=== PATIENT | female | born 1970 | race Two or more races ===

== ENCOUNTER 2020-08-22 07:22 | Outpatient (REF) | payer OTHER, SELFPAY ==
[2020-08-22 08:05] LABS: Hematocrit 45.1 % (37-47); Hemoglobin 14.4 g/dl (12.0-16.0); Mean Corpuscular HGB Conc 31.9 g/dl (31.0-35.0); Mean Corpuscular Hemoglobin 26.6 pg (27.0-33.0); Mean Corpuscular Volume 83.2 fL (80-98); Mean Platelet Volume 13.4 fL (9.4-12.3); Platelet Count 168 X10*3/uL (160-400); Red Blood Count 5.42 X10*6/uL (4.20-5.50); Red Cell Distribution Width 14.5 % (11.0-16.0); White Blood Count 9.1 X10*3/uL (4.8-10.8)
[2020-08-22 08:33] LABS: Alanine Aminotransferase 29 U/L (0-31); Albumin Level 4.8 g/dL (3.5-5.0); Alkaline Phosphatase 91 U/L (39-117); Anion Gap 15 (12-20); Aspartate Amino Transferase 20 U/L (5-31); Bilirubin Total 0.5 mg/dL (0.0-1.0); Blood Urea Nitrogen 13 mg/dL (9-16); Calcium 9.8 mg/dL (8.4-10.2); Carbon Dioxide 27 mmol/L (22-29); Chloride 103 mmol/L (96-108); Cholesterol 226 mg/dL; Estimated Glomerular Filt Rate > 60; Glucose Fasting 200 mg/dL (60-99); HDL Cholesterol 37 mg/dL; LDL Cholesterol Calculated 123 mg/dl; Potassium 4.5 mmol/L (3.3-5.1); Sodium 140 mmol/L (135-145); Total Protein 7.8 g/dL (6.5-8.0); Triglycerides 332 mg/dL
[2020-08-22 08:56] LABS: TSH reflex Free T4 3.07 uIU/mL (0.32-4.0)
[2020-08-22 09:22] LABS: Creatinine Urine 261.55 mg/dL; Microalbum/Creatinine Ratio Ur 56.2 ug/mg cr
== END 2020-08-22 07:23 | disposition home or self-care (01) ==
LOC: HO.LAB 07:22
PROVIDERS: PCP Physician Assistant; Visit Provider Physician Assistant
DX: E11.65 Type 2 diabetes mellitus with hyperglycemia (principal); I10 Essential (primary) hypertension
CPT/HCPCS: 36415; 80053; 80061; 82043; 84443; 85027

== ENCOUNTER → 2020-10-12 12:24 | Outpatient (BNVA) | payer OTHER, SELFPAY | PROVIDERS: PCP Physician Assistant; Visit Provider Physician Assistant | DX: Z12.11 Encounter for screening for malignant neoplasm of colon (principal); K21.9 Gastro-esophageal reflux disease without esophagitis | CPT/HCPCS: 99212 ==

== ENCOUNTER 2020-11-14 10:58 | Day surgery (SDC) | payer OTHER, SELFPAY ==
[2020-11-09 09:02] VITALS: BMI 41.5
--- NOTE | 2020-11-09 10:57 | P.CONAN_ITS ---
Documented by User: Lenore Gamboa 11/09/20 10:58 HPI - Anesthesia Eval Consult details Narrative: 50yo F for Upper Endoscopy and Colonoscopy [facility] Active Problems Active Problems: All Active Problems (Updated 11/09/20 @ 08:56 by Amanda Alexandra) HTN (hypertension) (Acute) DMII (diabetes mellitus, type 2) (Acute) Insomnia (Acute) Colon cancer screening (Acute) Acid reflux (Acute) Past Medical History Medical History Acid reflux DMII (diabetes mellitus, type 2) HTN (hypertension) Hyperlipidemia Iron deficiency anemia Family History Family History Brother Lymphoma Father Hypertension Diabetes Brother No problems noted. Surgical History Surgical History Hx of dilation and curettage Social History Social History Household Members: Spouse Alcohol intake: current Alcohol intake frequency: does not drink Smoking Status: Unknown if ever smoked Are you DNR?: No Advance Directives: No Advance Directives Information Provided: No Advance Directives on File: No Recently lost weight without trying: No Eating poorly because of decreased appetite: No Nutrition Risks: No Nutritional Risk Meds Allergies Allergy/AdvReac Type Severity Reaction Status Date / Time No Known Allergies Allergy Verified 11/09/20 08:56 Exam Exam Date and Time: November 09, 2020 1057 Height,Weight and Vital Signs: Height 5 ft 4 in Weight 109.769 kg Assessment and Plan Assessment Anesthesia Assessment: Chart Reviewed Documented by User: Brendan Donnelly 11/14/20 12:03 [facility] [place] Past Medical History Medical History Acid reflux DMII (diabetes mellitus, type 2) HTN (hypertension) Hyperlipidemia Iron deficiency anemia Family History Family History Brother Lymphoma Father Hypertension Diabetes Brother No problems noted. Surgical History Surgical History Hx of dilation and curettage Social History Social History Household Members: Spouse Alcohol intake: current Alcohol intake frequency: does not drink Smoking Status: Unknown if ever smoked Are you DNR?: No Advance Directives: No Advance Directives Information Provided: No Advance Directives on File: No Recently lost weight without trying: No Eating poorly because of decreased appetite: No Nutrition Risks: No Nutritional Risk Meds Allergies Allergy/AdvReac Type Severity Reaction Status Date / Time No Known Allergies Allergy Verified 11/09/20 08:56 Exam Airway Mallampati Class: III TM Dist: >3cm Neck ROM: Full Loose/Missing/Broken Teeth: No Heart: [id number] Lungs: cta b/l Assessment and Plan Assessment Anesthesia Assessment: Anesthesia Plan Discussed, PAT Visit and Chart Reviewed Final Anesthetic Review NPO: Yes ASA Class: III Final Preanesthetic Review: No Changes in Pt Med Stat, Meds/Allgs Chart Reviewed, Consent Obtained/Reviewed and Anes Risks/Benef Reviewed Patient Risk: Intermediate Procedure Risk: Low Assessment/Block/Sedation in SS: Assess/Block/Sedation-SS Anesthetic Plan Anesthetic Plan: MAC: and Agree w/ Assess. and Plan Disposition: Standard PACU
[2020-11-14 11:29] VITALS: BP 156/74; PULSE 90; RESP 18; TEMP 36.2; O2SAT 98; BMI 41.5
--- NOTE | 2020-11-14 11:47 | MHC.SHP ---
Pre-Procedural Eval Section B Chief Complaint: Screening, Acid Reflux Relevant Family History (Specify if Yes): No Relevant Social History: None Present Medications: see Short Stay Collaborative assessment Medical History: Significant History (Acid reflux DMII (diabetes mellitus, type 2) HTN (hypertension) Hyperlipidemia Iron deficiency anemia) History of Previous Operations: Relevant previous surgery/procedure and date(s) (D and C) Allergies: Allergies Allergy/AdvReac Type Severity Reaction Status Date / Time No Known Allergies Allergy Verified 11/09/20 08:56 Review of Systems Sugical H&P ROS: Negative: Constitution, Cardiovascular, Respiratory, Neurological, Psychiatric, Hem-Onc, Allergic/Immunologic, Gastrointestinal, Genitourinary, Musculoskeletal, Integumentary, Endocrine and Eyes/Ears/Nose/Throat Exam Surgical H&P Exam: Normal: HEENT, Normal: Heart, Normal: Lungs, Normal: Extremities, Normal: Abdomen, Normal: Skin and Normal: Neurological Plan Diagnosis/Plan: Unchanged I have reviewed the history and physical and performed a pertinent physical examination on my patient. No changes have occurred unless specified.
[2020-11-14] MEDS: Lactated Ringers 1,000 ML 100 ML IVCONT (11:57)
--- NOTE | 2020-11-14 12:25 | P.BOP_ITS ---
Brief Operative Note Date of Service: 11/14/20 Pre-op diagnosis: GERD, colon screen Post-op diagnosis: same Procedure: see op note Surgeon: Jose Elias Currie MD Anesthesia: MAC Was an Photographer Model used for this Procedure?: No Estimated blood loss (mL): 0 Condition: stable Disposition: PACU
[2020-11-14 12:32] LABS: Glucose, Whole Blood 140 mg/dL (60-115)
--- NOTE | 2020-11-14 12:35 | P.OP_ITS ---
Operative Note Operative Note Date of Service: 11/14/20 Narrative: Operative Information Procedure Description: EGD, Colonoscopy FLEXIBLE TRANSORAL UPPER GASTROINTESTINAL ENDOSCOPY AND COLONOSCOPY PROCEDURE NOTE UPPER ENDOSCOPY Consent: Indications for the procedure and potential complications of bleeding, perforation, reaction to medications and missed diagnosis were discussed with the patient and informed consent was obtained. Instrument: Olympus GIF H 190 J mid size upper endoscope Monitoring: Vital signs and clinical assessment, continuous EKG monitoring, Pulse oximetry, Carbon Dioxide monitoring and blood pressure monitoring were done throughout the procedure. Procedure: The patient was placed in the left lateral decubitis position and pre-procedure medications were administered and a bite block was placed. The endoscope was inserted into the mouth and advanced under direct vision to the third part of duodenum. A careful inspection was made as the upper endoscope was withdrawn including a retroflexed examination of the proximal stomach; Findings and interventions are described below. Findings: Larynx:normal Esophagus: GE junction at 37 cm, diaphragm hiatus at 37 cm, suspected short segment barretts, bx taken from GEj, and distal esophagus/proximal esophagus in separate jars Stomach: Patchy erythema. Biopsies were obtained. Grade 3 flap valve on retroflexed examination of the cardia. Duodenum: Normal bulb and descending duodenum, Intervention: Biopsies as noted above COLONOSCOPY Instrument: Olympus variable stiffness pediatric scope 190L Colonoscopy Monitoring: Vital signs and clinical assessment, continuous EKG monitoring, Pulse oximetry, Carbon Dioxide monitoring and blood pressure monitoring were done throughout the procedure. Colon withdrawal time was 11 minutes. Procedure: The patient was placed in the left lateral decubitis position and pre-procedure medications were administered. After a digital rectal examination of the ano-rectum, the video colonoscope was inserted into the rectum and advanced through the colon to the cecum/TI. The colonoscope was slowly withdrawn in a retrograde panoramic fashion and the colon mucosa was carefully examined including a retroflexed view of the rectum. Findings and interventions are described below. Procedure Difficulty:moderate, pressure applied to upper abdomen to intubate cecum Findings: Terminal Ileum-unable to intubate but ileocecal valve seen on retroflexion and was normal Cecum:normal Ascending Colon: normal Transverse Colon -normal Descending Colon:6-8 mm sessile polyp removed with forceps Sigmoid Colon: normal Rectum: Retroflexion with small internal hemorrhoids, grade I Anorectum - normal Colon preparation: De Leon Bowel Preparation Scale Right colon; 2 Transverse colon: 2 Left colon; 2 (0 = Unprepared colon segment with mucosa not seen due to solid stool that cannot be cleared. 1 = Portion of mucosa of the colon segment seen, but other areas of the colon se gment not well seen due to staining, residual stool and/or opaque liquid. 2 = Minor amount of residual staining, small fragments of stool and/or opaque liquid, but mucosa of colon segment seen well. 3 = Entire mucosa of colon segment seen well with no residual staining, small fragments of stool or opaque liquid) Impression and Post Procedure Diagnosis: Endoscopy Findings: possible barretts gastritis Colonoscopy Findings: polyp internal hemorrhoids Plan: Await Pathology results Repeat Colonoscopy in 5 years if adenoma, 10 yrs if hyperplastic polyp or earlier if clinically indicated High fiber diet leaflet avoid straining at stool, epsom salts and sitz bath, anusol supps or cream Above findings were reviewed with the patient and relevant handouts were provided if indicated.
[2020-11-14 13:05] VITALS: BP 110/57; PULSE 80; RESP 16; TEMP 36.3; O2SAT 94
[2020-11-14 13:21] VITALS: BP 123/94; PULSE 82; RESP 16; TEMP 36.3; O2SAT 97
== END 2020-11-14 13:59 | disposition home or self-care (01) ==
PROVIDERS: PCP Physician Assistant; Visit Provider Internal Medicine Gastroenterology
PROC: (CPT 45380; principal; 2020-11-14 12:30)
DX: Z12.11 Encounter for screening for malignant neoplasm of colon (principal); K63.5 Polyp of colon; K64.0 First degree hemorrhoids; K21.9 Gastro-esophageal reflux disease without esophagitis; K29.50 Unspecified chronic gastritis without bleeding; K44.9 Diaphragmatic hernia without obstruction or gangrene; I10 Essential (primary) hypertension; E11.9 Type 2 diabetes mellitus without complications; D50.9 Iron deficiency anemia, unspecified; Z79.82 Long term (current) use of aspirin; Z79.84 Long term (current) use of oral hypoglycemic drugs; Z79.899 Other long term (current) drug therapy
CPT/HCPCS: 45380; 43239; 82947; 88305

== ENCOUNTER → 2020-12-14 11:48 | Outpatient (BNVA) | payer OTHER, SELFPAY | PROVIDERS: PCP Physician Assistant; Visit Provider Physician Assistant | DX: K21.9 Gastro-esophageal reflux disease without esophagitis (principal) | CPT/HCPCS: 99212 ==

== ENCOUNTER 2021-02-06 08:47 | Outpatient (REF) | payer OTHER, SELFPAY ==
[2021-02-06 10:03] LABS: Estimated Average Glucose 166 mg/dL; Hemoglobin A1c % 7.4 %
[2021-02-06 10:22] LABS: Alanine Aminotransferase 16 U/L (0-31); Albumin Level 4.5 g/dL (3.5-5.0); Alkaline Phosphatase 72 U/L (39-117); Anion Gap 14 (12-20); Aspartate Amino Transferase 16 U/L (5-31); Bilirubin Total < 0.2 mg/dL (0.0-1.0); Blood Urea Nitrogen 16 mg/dL (9-16); Calcium 9.4 mg/dL (8.4-10.2); Carbon Dioxide 26 mmol/L (22-29); Chloride 102 mmol/L (96-108); Cholesterol 231 mg/dL; Estimated Glomerular Filt Rate > 60; Glucose Fasting 141 mg/dL (60-99); HDL Cholesterol 41 mg/dL; LDL Cholesterol Calculated 159 mg/dl; Sodium 138 mmol/L (135-145); Total Protein 7.5 g/dL (6.5-8.0); Triglycerides 156 mg/dL
== END 2021-02-06 08:48 | disposition home or self-care (01) ==
LOC: HO.LAB 08:47
PROVIDERS: PCP Physician Assistant; Visit Provider Physician Assistant
DX: E11.65 Type 2 diabetes mellitus with hyperglycemia (principal)
CPT/HCPCS: 36415; 80053; 80061; 83036

== ENCOUNTER → 2021-03-16 12:20 | Outpatient (BNVA) | payer OTHER, SELFPAY | PROVIDERS: PCP Physician Assistant; Visit Provider Physician Assistant | DX: K21.9 Gastro-esophageal reflux disease without esophagitis (principal) | CPT/HCPCS: 99212 ==

== ENCOUNTER 2021-07-24 08:30 | Outpatient (REF) | payer OTHER, SELFPAY ==
[2021-07-24 08:58] LABS: Appearance Urine CLEAR; Color Urine YELLOW; Glucose Urine UA 250 MG/DL (NEG); Leukocyte Esterase Urine NEG (NEG); Nitrite Urine NEG (NEG); PH 5.5 (5.0-8.0); Specific Gravity - Urine >= 1.030 (1.005-1.025); Urine Blood NEG (NEG); Urine Ketones NEG (NEG); Urine Protein TRACE MG/DL (NEG-TRACE)
== END 2021-07-24 08:31 | disposition home or self-care (01) ==
LOC: HO.LAB 08:30
PROVIDERS: PCP Physician Assistant; Visit Provider Physician Assistant
DX: R30.0 Dysuria (principal)
CPT/HCPCS: 81003

== ENCOUNTER 2021-10-12 09:34 | Outpatient (REF) | payer OTHER, SELFPAY ==
[2021-10-12 10:49] LABS: Hematocrit 39.2 % (37.0-47.0); Hemoglobin 11.8 g/dl (12.0-16.0); Mean Corpuscular HGB Conc 30.1 g/dl (31.0-35.0); Mean Corpuscular Hemoglobin 23.3 pg (27.0-33.0); Mean Corpuscular Volume 77.5 fL (80.0-98.0); Platelet Count 231 X10*3/uL (160-400); Red Blood Count 5.06 X10*6/uL (4.20-5.50); Red Cell Distribution Width 15.6 % (11.0-16.0)
[2021-10-12 11:08] LABS: Alanine Aminotransferase 22 U/L (0-31); Albumin Level 4.6 g/dL (3.5-5.0); Alkaline Phosphatase 74 U/L (39-117); Anion Gap 15 (12-20); Aspartate Amino Transferase 18 U/L (5-31); Bilirubin Total 0.5 mg/dL (0.0-1.0); Blood Urea Nitrogen 13 mg/dL (9-16); Calcium 9.7 mg/dL (8.4-10.2); Carbon Dioxide 23 mmol/L (22-29); Chloride 101 mmol/L (96-108); Cholesterol 214 mg/dL; Estimated Glomerular Filt Rate > 60; Glucose Fasting 185 mg/dL (60-99); HDL Cholesterol 37 mg/dL; LDL Cholesterol Calculated 130 mg/dl; Potassium 4.1 mmol/L (3.3-5.1); Sodium 135 mmol/L (135-145); Total Protein 7.7 g/dL (6.5-8.0); Triglycerides 237 mg/dL
[2021-10-12 11:16] LABS: Creatinine Urine 151.49 mg/dL; Microalbum/Creatinine Ratio Ur 11.2 ug/mg cr
[2021-10-12 11:26] LABS: HBsAGNum1 0.18 S/CO (0.00-0.99); HIV AB/AG Nonreactive (Nonreactive); HIV Num 1 0.07 S/CO (0.00-0.99); Hepatitis B Surface Antigen Negative (Negative); ~HepC Num1 0.14 S/CO (0.00-0.79); ~Hepatitis C Antibody Nonreactive (Nonreactive)
[2021-10-12 11:28] LABS: HBS Num1 131.45 mIU/mL (0-7.99); HBc Num1 0.08 S/CO (0.00-0.79); Hepatitis B Core Antibody Nonreactive (Nonreactive); ~Hepatitis B Surface Antibody REACTIVE (Nonreactive)
[2021-10-12 11:39] LABS: TSH reflex Free T4 3.87 uIU/mL (0.32-4.0)
[2021-10-13 07:56] LABS: Syphilis Screen Nonreactive (Nonreactive)
== END 2021-10-12 09:35 | disposition home or self-care (01) ==
LOC: HO.LAB 09:34
PROVIDERS: PCP Physician Assistant; Visit Provider Physician Assistant
DX: Z11.3 Encounter for screening for infections with a predominantly sexual mode of transmission (principal); Z11.4 Encounter for screening for human immunodeficiency virus [HIV]; E11.65 Type 2 diabetes mellitus with hyperglycemia; I10 Essential (primary) hypertension; E78.2 Mixed hyperlipidemia
CPT/HCPCS: 36415; 80053; 80061; 82043; 84443; 85027; 86704; 86706; 86780; 86803; 87340; 87389

== ENCOUNTER 2021-10-26 09:10 | Outpatient (REF) | payer OTHER, SELFPAY ==
--- NOTE | ~2021-10-26 | MM_ITS ---
EXAMINATION: MM SCREENING DIGITAL BREAST TOMOSYNTHESIS, BILATERAL CLINICAL INFORMATION: Screening. Asymptomatic. The lifetime risk of breast cancer based on the Tyrer-Cuzick Model is 12.8%. COMPARISON: Mammography: 02/12/2020 and studies dating back to 05/02/2019 TECHNIQUE: Digital breast tomosynthesis is performed in both the craniocaudal and mediolateral oblique views along with computer-aided detection (CAD). Synthesized 2D images are generated from the tomosynthesis. FINDINGS: There are scattered areas of fibroglandular density (ACR BI-RADS breast composition Category b). There is a stable parenchymal pattern of the left breast with no new abnormal dominant mass or suspicious grouping of microcalcifications. Within the upper outer aspect of the right breast approximately 7 cm from the nipple, in an area where there appeared to have been a previous lymph node, there is some increased density which may be related to increased parenchyma versus developing lesion. Recommend spot compression views and craniocaudal and mediolateral like projections as well as a 90 degree mediolateral view. MM/MM tomosynthesis screening BI IMPRESSION: Increasing density upper outer aspect of the right breast for further evaluation as described. ASSESSMENT: BI-RADS 0: Incomplete - Need Additional Imaging Evaluation RECOMMENDATION: 1. Additional views of the right breast. 2. Targeted ultrasound if warranted after review of the additional views. 3. Radiology department staff will contact the patient for additional imaging.
== END 2021-10-26 09:11 | disposition home or self-care (01) ==
LOC: HO.MAMMO 09:10
PROVIDERS: PCP Physician Assistant; Visit Provider Physician Assistant
DX: Z12.31 Encounter for screening mammogram for malignant neoplasm of breast (principal)
CPT/HCPCS: 77063; 77067

== ENCOUNTER 2021-11-14 08:54 | Outpatient (REF) | payer OTHER, SELFPAY ==
--- NOTE | ~2021-11-14 | MM_ITS ---
EXAMINATION: MM DIAGNOSTIC DIGITAL BREAST TOMOSYNTHESIS, RIGHT CLINICAL INFORMATION: Recall from screening for question of increasing asymmetry. Tc score 13%. COMPARISON: Mammography: 10/26/2021, 10/13/2019, 05/07/2019, 05/02/2019; targeted right breast ultrasound 05/07/2019. TECHNIQUE: Digital breast tomosynthesis is performed. 2D images are generated from the tomosynthesis. The following views are obtained: Spot CC, spot ML, standard ML. FINDINGS: There are scattered areas of fibroglandular density (ACR BI-RADS breast composition Category b). Additional views show fibronodular densities similar to prior studies. There is no developing density or interval mass or architectural abnormality. Results are discussed with the patient at time of visit, using an preschool education director. MM/MM tomosynthesis added views R IMPRESSION: Additional views show no significant changes from prior exams. ASSESSMENT: BI-RADS 2: Benign RECOMMENDATION: Routine annual mammography screening. This patient's information was entered into a reminder system with a target due date for their next mammogram.
== END 2021-11-14 08:55 | disposition home or self-care (01) ==
LOC: HO.MAMMO 08:54
PROVIDERS: PCP Physician Assistant; Visit Provider Physician Assistant
DX: R92.2 Inconclusive mammogram (principal)
CPT/HCPCS: 77061; 77065

== ENCOUNTER 2021-11-24 07:20 | Outpatient (REF) | payer OTHER, SELFPAY ==
--- NOTE | ~2021-11-24 | US_ITS ---
EXAMINATION: US ABDOMEN COMPLETE CLINICAL INFORMATION: Right upper quadrant pain. COMPARISON: None TECHNIQUE: Real-time imaging of the abdominal viscera. Technically limited study secondary to bowel gas, body habitus and highly attenuating liver. FINDINGS: PANCREAS: Not well seen secondary to bowel gas. ABDOMINAL AORTA: The proximal, mid, and distal segments are normal in caliber. INFERIOR VENA CAVA: Not well seen due to bowel gas. LIVER: Normal size of the liver. The liver contour is normal. There is diffuse increased liver parenchymal echogenicity, consistent with hepatic steatosis. No focal hepatic lesion. There is no intrahepatic biliary duct dilatation seen. GALLBLADDER: There is shadowing noted along the gallbladder wall as can be seen with adenomyomatosis. The gallbladder is physiologically distended without evidence of stones, sludge, polyps, wall thickening or pericholecystic fluid. COMMON BILE DUCT: Prominent in caliber measuring 0.7 cm in diameter. RIGHT KIDNEY: Normal. No hydronephrosis. No renal calculi or focal parenchymal lesions. The kidney measures 12.1 cm in maximum dimension. LEFT KIDNEY: Normal. No hydronephrosis. No renal calculi or focal parenchymal lesions. The kidney measures 12.1 cm in maximum dimension. SPLEEN: Normal. The spleen measures 13.4 cm in maximum dimension. FREE FLUID: None. US/US abdomen complete IMPRESSION: Prominent common bile duct. No filling defect seen. Hepatic steatosis. Suspect adenomyomatosis of the gallbladder wall.
== END 2021-11-24 07:21 | disposition home or self-care (01) ==
LOC: HO.US 07:20
PROVIDERS: Visit Provider Physician Assistant
DX: R10.11 Right upper quadrant pain (principal)
CPT/HCPCS: 76700

== ENCOUNTER → 2021-12-28 09:54 | Outpatient (BNVA) | payer OTHER, SELFPAY | PROVIDERS: PCP Physician Assistant; Visit Provider Surgery | DX: R10.11 Right upper quadrant pain (principal); R10.9 Unspecified abdominal pain; E66.01 Morbid (severe) obesity due to excess calories; Z68.39 Body mass index [BMI] 39.0-39.9, adult | CPT/HCPCS: 99202 ==

== ENCOUNTER 2023-05-17 07:20 | Outpatient (AMB) | payer OTHER, SELFPAY ==
[2023-05-17 07:27] VITALS: BP 140/80; PULSE 78; O2SAT 98; BMI 39.0
--- NOTE | 2023-05-17 07:27 | A.OFFPC_ITS ---
Vital Signs 05/17/23 07:27 Height 5 ft 4 in Weight 227 lb BMI 39.0 BP 140/80 H Blood Pressure Location Lt brachial Position Sitting Pulse 78 Pulse Source Pulse Oximeter Pulse Oximetry (%) 98 Oxygen Delivery Method Room Air Intake Visit Reasons: Physical exam Medical Professionals Required: Yes Medical Professionals Language: Driller And Reamer Name: Tracee [id number] Information Interpreted: non-clinical & clinical Allergies pneumococcal vaccine [From Pneumovax-23] Adverse Reaction (Intermediate, Verified 05/17/23 07:41) Wheezing Medication List - Last Reconciled 05/17/23 by FADY Lackey amlodipine 5 mg PO DAILY 90 days atorvastatin 40 mg PO BEDTIME 90 days blood pressure monitor (Blood Pressure Kit) As directed blood sugar diagnostic (FreeStyle Lite Strips) As directed blood-glucose meter (FreeStyle [place] Lite kit) As directed dulaglutide (Trulicity) 3 mg (0.5 mL) subcut QWEEK lancets (FreeStyle Lancets) As directed lisinopril-hydrochlorothiazide 20-25 mg 1 tab PO DAILY 90 days metformin 1,000 mg PO BID 90 days omeprazole 40 mg PO DAILY 90 days Tobacco use date assessed: 05/17/23 Dental Screening Dental Screen Date: 05/17/23 Did you have a dental visit in the last 12 months?: No Did you have a dental problem in the last 6 months where you did not have access to dental care?: No Was dental information given to patient?: No HPI HPI Comments History of Present Illness Details 53-year-old female past medical history significant for type 2 diabetes mellitus, hypertension, hyperlipidemia, benign paroxysmal positional vertigo, insomnia and acid reflux. Patient of Des Garcia PA-C, patient presents today for physical exam. Patients reports paplpitations 1x week, that last 10 minutes and she will lay down and it gets better. Denies CP, shortness of breath, syncope. Denies nausea, vomiting and diaphoresis. Patient also reports she has a fungal infection on her tongue states when she wakes in the morning her whole tongue is white and then she will brush her tongue to remove it. Eye exam: Goes annually, Due in Jul Pap smear: Follows with [facility]. Colonoscopy: 10/2020,recommended 10 year follow up. Mammogram: Patient states had to cx appointment in october adivsed to get done Tdap current, flu shot recommended. [facility] Medical History Hyperlipidemia Iron deficiency anemia DMII (diabetes mellitus, type 2) HTN (hypertension) Acid reflux Surgical History H/O esophagogastroduodenoscopy H/O colonoscopy Hx of dilation and curettage Family History Brother Lymphoma Father Hypertension Diabetes Brother No problems noted. Social History Household Members: Spouse Housing: House Alcohol intake: never Patient Tobacco Use Status: Never used Tobacco e-Cigarette/Vaping Use: Never Used Second Hand Smoke Exposure: No service: No Current occupational status: unemployed Cognitive needs: No Hearing needs: No Vision needs: No Questionnaire PHQ-9 Over the last 2 weeks, how often have you been bothered by any of the following problems? 1. Little interest or pleasure in doing things: not at all 2. Feeling down, depressed, or hopeless: not at all 3. Trouble falling or staying asleep, or sleeping too much: not at all 4. Feeling tired or having little energy: not at all 5. Poor appetite or overeating: not at all 6. Feeling bad about yourself - or that you are a failure or have let yourself or your family down: not at all 7. Trouble concentrating on things, such as reading the newspaper or watching television: not at all 8. Moving or speaking so slowly that other people could have noticed. Or the opposite - being so fidgety or restless that you have been moving around a lot more than usual: not at all 9. Thoughts that you would be better off or of hurting yourself in some way: not at all Total score: 0 Depression Screening Interpretation: Negative Depression Screening Done: Yes 80754 - PHQ-9 Billing: Yes Source: Developed by Drs. Jovany Encarnacion, Urmila Toussaint, Nate Brown and colleagues, with an educational rachele from [employer] Thrive Questionnaire Date Thrive assessed: 05/17/23 I am a: Patient What is your living situation today?: I have a steady place to live Within the past 12 months, did the food you bought not last and you didn't have the money to get more?: Never true Within the past 12 months, did you worry whether your food would run out before you got money to buy more?: Never true Do you have trouble paying for medicines?: No Do you have trouble getting transportation to medical appointments?: No Do you have trouble paying your heating and electricity bill?: No Do you have trouble taking care of your child, family member or friend?: No Do you have trouble with day-to-day activities such as bathing, preparing meals, shopping, managing finances, etc.?: No Are you currently unemployed and looking for a job?: No Are you interested in more education?: No Currently or been in a relationship where the following occur: no concerns reported AUDIT C Alcohol Use Questionnaire (AUDIT-C) 1. How often do you have a drink containing alcohol?: Never 3. How often do you have six or more drinks on one occasion?: Never Total Score: 0 SINDI-7 AMB Questionnaire SINDI-7 Date SINDI - 7 assessed: 05/17/23 Feeling nervous, anxious, or on edge: 0 = Not at all Not being able to stop or control worryin = Not at all Worrying too much about different things: 0 = Not at all Trouble relaxin = Not at all Being so restless that it is hard to sit still: 0 = Not at all Becoming easily annoyed or irritable: 0 = Not at all Feeling afraid as if something awful might happen: 0 = Not at all Total SINDI-7 score (0-4 normal; 5-9 mild; 10-14 moderate; 15-21 severe): 0 Source: Developed by Drs. Jovany Encarnacion, Urmila Toussaint, Nate Brown and colleagues, with an educational rachele from [employer] SINDI-7 Assessment Billing SINDI-7 Assessment Tool: SINDI-7 Assessment 56774 Review of Systems Const Denies chills, Denies fatigue, Denies fever(s) and Denies poor appetite Eyes Denies no additional complaints ENT Reports Normal hearing present Card Denies chest pain, Denies syncope, Reports rapid heart rate and Denies dyspnea Resp Denies cough and Denies dyspnea GI Denies change in stool character, Denies constipation, Denies diarrhea, Denies nausea and Denies vomiting Denies urinary frequency, Denies dysuria and Denies urinary urgency Skin/Breast Details: white plaque on tongue daily Neuro Reports Normal hearing present, Denies confusion and Denies syncope Psych Denies confusion Endo Denies fatigue Physical exam (Primary Care) Vital Signs: Last Vital Signs Pulse 78 05/17/23 07:27 BP 140/80 H 05/17/23 07:27 Pulse Ox 98 05/17/23 07:27 Oxygen Delivery Method Room Air 05/17/23 07:27 BMI result Body Mass Index 39.0 Tobacco/Smoking Status: Tobacco use Status Tobacco use date assessed 05/17/23 05/17/23 07:32 Patient Tobacco Use Status Never used Tobacco 05/17/23 07:32 Tobacco use type 05/17/23 07:32 e-Cigarette/Vaping Use Never Used 05/17/23 07:32 PHQ-9: PHQ-9 Score PHQ-9: Total score 0 05/17/23 08:12 Depression Screening Interpretation: Negative Thrive Assessment: Date of Thrive Assessment Date Thrive assessed 05/17/23 05/17/23 07:32 Currently or been in a relationship where the following occur: no concerns reported Const General: No confusion Orientation/consciousness: No confusion HENMT Head: Yes normocephalic and Yes atraumatic Ears: external ears normal and TM's normal bilaterally General nose exam: Normal external nose present and Normal nasal mucous membranes and turbinates present Face and sinus: Yes normal facial exam and Yes sinuses nontender Mouth: moist mucous membranes and tongue abnormal smooth (no white coating noted at this time. ) Throat: Yes tonsils normal Eyes Conjunctivae: conjunctivae normal Sclerae: sclerae normal Pupils: Equal, round and reactive pupils present and Pupils normal by confrontation EOM: EOMs intact bilaterally Direct Ophthalmoscopy: normal light reflex Neck Neck: Yes no lymphadenopathy and Yes supple Thyroid: Thyroid normal Chest Chest palpation & inspection: normal inspection of the chest Resp Effort & Inspection: normal respiratory effort Auscultation: clear to auscultation bilaterally, no crackles, no rhonchi and no wheezes Cardio Rate: regular rate Rhythm: regular rhythm Peripheral pulses: radial pulses present and dorsalis pedis present GI Inspection: Yes normal to inspection Palpation (GI): Soft to palpation, nontender and No hepatosplenomegaly present Auscultation: normoactive bowel sounds Skin General skin exam: no rashes or lesions noted Neuro General: No confusion Cranial nerves: Yes Equal, round and reactive pupils present and Yes Normal hearing present Cognition (Neuro): normal cognition Gait exam (Neuro): Normal gait present Motor exam (neuro): 5/5 motor strength present throughout Deep tendon reflexes (DTR's): Right brachioradialis reflex intensity grade: 2+, Left brachioradialis reflex intensity grade: 2+, Right patellar reflex intensity grade: 2+ and Left patellar reflex intensity grade: 2+ Extrem General: No edema Office Procedures Flu Questionnaire Does the patient have a severe egg allergy?: No Does the patient have severe life threatening allergies?: No Does the patient have a fever or illness today?: No Has the patient ever had Guillain-Hesperia Syndrome?: No Has the patient ever had any past reaction to a flu shot?: No Immunizations flu vacc [id number] 6mos up(PF) 60 mcg(15 mcgx4)/0.5 mL IM syringe Performing Provider: FADY Lackey [facility] Documented (not given) by: Brenda Schuler CMA on 05/17/23 07:33 Reason Not Given: Patient Refused Assessment and Plan Assessment & Plan (1) Palpitations: Code(s): R00.2 - Palpitations Plan: EKG ordered to further evaluate. Signs and symptoms reviewed with patient when to seek emergency medical attention (2) DMII (diabetes mellitus, type 2): Code(s): E11.9 - Type 2 diabetes mellitus without complications Qualifiers: Diabetes mellitus complication status: with hyperglycemia Diabetes mellitus terminal worker insulin use: without shelter use Qualified Code(s): E11.65 - Type 2 diabetes mellitus with hyperglycemia Plan: Continue on metformin a 1000 mg b.i.d. and Trulicity. Patient reports she needs a refill on her Trulicity as she ran out of it, Rx sent. Hemoglobin A1c and fasting glucose ordered. Patient educated to decrease the amount of carbohydrate intake such as pasta, bread, rice and potatoes are all sugar in addition to the sweet stuff. Remember that fruits are good but they also have sugar. (3) HTN (hypertension): Code(s): I10 - Essential (primary) hypertension Qualifiers: Hypertension type: essential hypertension Qualified Code(s): I10 - Essential (primary) hypertension Plan: Continue on amlodipine 5 mg daily. Follow low-salt diet and exercise. Blood pressure goal less than 140/90. (4) Annual physical exam: Code(s): Z00.00 - Encounter for general adult medical examination without abnormal findin gs Plan: Follow-up in 1 year for annual exam. (5) HLD (hyperlipidemia): Code(s): E78.5 - Hyperlipidemia, unspecified Qualifiers: Hyperlipidemia type: mixed hyperlipidemia Qualified Code(s): E78.2 - Mixed hyperlipidemia Plan: Fasting lipid panel ordered. Continue on atorvastatin 40 mg at bedtime. LDL goal less than 100. Avoid fried foods, chicken skin, eggs, butter,margarine, pastries and?? red meat (6) Antionette, oral: Code(s): B37.0 - Candidal stomatitis Plan: Nystatin swish and swallow sent to patient's pharmacy. Plan Follow-up in 3 months. Orders: Orders Comprehensive [place]. Panel Fast Today E11.9 - Type 2 diabetes mellitus without complications Lipid Panel Today E78.5 - Hyperlipidemia, unspecified TSH reflex Free T4 Today Z13.29 - Encounter for screening for other suspected endocrine disorder ECG 12 lead EKG Today R00.2 - Palpitations Influenza [id number] Immunization Today Z23 - Encounter for immunization Hemoglobin A1c Today E11.9 - Type 2 diabetes mellitus without complications Complete Blood Count Auto Diff Today Z13.0 - Encounter for screening for diseases of the blood and blood-forming organs and certain disorders involving the immune mechanism Medications: New nystatin swish and swallow 4 mL PO QID 112 mL 0RF B37.0 - Candidal stomatitis Refilled dulaglutide (Trulicity) 3 mg (0.5 mL) subcut QWEEK 2 mL 3RF E11.65 - Type 2 diabetes mellitus with hyperglycemia Coding Level of Care Code Est Pt Prev Care 40-64y(10106) Diagnoses Palpitations R00.2 Type 2 diabetes mellitus with hyperglycemia, without long-term current use of insulin E11.65 Diabetes mellitus complication status: with hyperglycemia Diabetes mellitus terminal worker insulin use: without terminal worker use Essential hypertension I10 Hypertension type: essential hypertension Annual physical exam Z00.00 Mixed hyperlipidemia E78.2 Hyperlipidemia type: mixed hyperlipidemia Antionette, oral B37.0 Additional Codes SINDI-7 Assessment Billing - SINDI-7 Assessment Tool: SINDI-7 Assessment 16451 ([id number])
== END 2023-05-17 07:57 | disposition home or self-care (01) ==
PROVIDERS: PCP Physician Assistant; Visit Provider Nurse Practitioner Family
DX: Z00.00 Encounter for general adult medical examination without abnormal findings (principal); R00.2 Palpitations; E11.65 Type 2 diabetes mellitus with hyperglycemia; I10 Essential (primary) hypertension; E78.2 Mixed hyperlipidemia; B37.0 Candidal stomatitis
CPT/HCPCS: 99396

== ENCOUNTER → 2023-08-16 09:35 | Outpatient (REF) | payer OTHER, SELFPAY ==
--- NOTE | 2023-08-16 09:44 | ECG_ITS ---
Test Reason : PALPS Blood Pressure : / mmHG Vent. Rate : 073 BPM Atrial Rate : 073 BPM P-R Int : 146 ms QRS Dur : 094 ms QT Int : 394 ms P-R-T Axes : 043 -15 -16 degrees QTc Int : 434 ms Normal sinus rhythm Normal ECG No previous ECGs available Referred By: Nolvia Mueller Electronically Signed By:Ryan Dueñas
[2023-08-16 09:47] LABS: MANUAL DIFF FLAG NO
[2023-08-16 10:05] LABS: Basophils Absolute Auto 0.1 X10*3/uL (0.0-0.2); Basophils Percent Auto 0.9 % (0-2); Eosinophils Absolute Auto 0.1 X10*3/uL (0.0-0.4); Eosinophils Percent Auto 1.8 % (0-4); Estimated Average Glucose 148 mg/dL; Hematocrit 38.1 % (37.0-47.0); Hemoglobin 11.1 g/dl (12.0-16.0); Hemoglobin A1c % 6.8 % (<6.0); Imm Gran Abs Auto 0.03 X10*3/uL (0.00-0.03); Imm Gran Pct Auto 0.5 % (0.0-0.4); Lymphocytes Absolute Auto 1.5 X10*3/uL (1.2-4.9); Lymphocytes Percent Auto 25.7 % (20-40); Mean Corpuscular HGB Conc 29.1 g/dl (31.0-35.0); Mean Corpuscular Hemoglobin 21.3 pg (27.0-33.0); Mean Corpuscular Volume 73.3 fL (80.0-98.0); Monocytes Absolute Auto 0.4 X10*3/uL (0.1-1.2); Monocytes Percent Auto 6.7 % (2-11); Neutrophils Absolute Auto 3.6 x10*3/uL (2.0-8.3); Neutrophils Percent Auto 64.4 % (45-73); Platelet Count 212 X10*3/uL (160-400); Red Cell Distribution Width 18.6 % (11.0-16.0); White Blood Count 5.7 X10*3/uL (4.8-10.8)
[2023-08-16 10:33] LABS: Alanine Aminotransferase 16 U/L (0-31); Albumin Level 4.4 g/dL (3.5-5.0); Alkaline Phosphatase 76 U/L (39-117); Anion Gap 12 (12-20); Aspartate Amino Transferase 15 U/L (5-31); Bilirubin Total 0.2 mg/dL (0.0-1.0); Blood Urea Nitrogen 12 mg/dL (9-16); Calcium 9.1 mg/dL (8.4-10.2); Carbon Dioxide 28 mmol/L (22-29); Chloride 105 mmol/L (96-108); Cholesterol 187 mg/dL (<200); Estimated Glomerular Filt Rate > 60; Glucose Fasting 153 mg/dL (60-99); HDL Cholesterol 36 mg/dL (>40); LDL Cholesterol Calculated 110 mg/dL (<100); Potassium 3.9 mmol/L (3.3-5.1); Sodium 141 mmol/L (135-145); Total Protein 7.6 g/dL (6.5-8.0); Triglycerides 209 mg/dL (<150)
[2023-08-16 10:50] LABS: TSH reflex Free T4 1.32 uIU/mL (0.32-4.0)
== END ==
LOC: HO.CARD 09:35
PROVIDERS: PCP Physician Assistant; Visit Provider Nurse Practitioner Family
DX: R00.2 Palpitations (principal); E11.9 Type 2 diabetes mellitus without complications; E78.5 Hyperlipidemia, unspecified; Z13.29 Encounter for screening for other suspected endocrine disorder; Z13.0 Encounter for screening for diseases of the blood and blood-forming organs and certain disorders involving the immune mechanism
CPT/HCPCS: 36415; 80053; 80061; 83036; 84443; 85025; 93005

== ENCOUNTER → 2023-08-16 09:44 | Outpatient (BNV) | payer OTHER, SELFPAY | PROVIDERS: PCP Physician Assistant; Visit Provider Internal Medicine Cardiovascular Disease | DX: R00.2 Palpitations (principal) | CPT/HCPCS: 93010 ==

== ENCOUNTER 2023-08-19 14:01 | Outpatient (AMB) | payer OTHER, SELFPAY ==
[2023-08-19 14:13] VITALS: BP 144/76; PULSE 100; O2SAT 98; BMI 39.2
--- NOTE | 2023-08-19 14:13 | MHC.PC.OV ---
Vital Signs 08/19/23 14:13 Height 5 ft 4 in Weight 228 lb 8 oz BMI 39.2 BP 144/76 H Blood Pressure Location Lt brachial Position Sitting Pulse 100 Pulse Source Pulse Oximeter Pulse Oximetry (%) 98 Oxygen Delivery Method Room Air Intake Visit Reasons: DM, HTN,HLD Supervisor Car Installations Required: No Accompanied by: Spouse Allergies pneumococcal vaccine [From Pneumovax-23] Adverse Reaction (Intermediate, Verified 08/19/23 14:29) Wheezing Medication List - Last Reconciled 08/19/23 by Alo Garcia PA-C amlodipine 5 mg PO DAILY 90 days blood pressure monitor (Blood Pressure Kit) As directed blood sugar diagnostic (FreeStyle Lite Strips) As directed blood-glucose meter (FreeStyle [place] Lite kit) As directed dulaglutide (Trulicity) 3 mg (0.5 mL) subcut QWEEK lancets (FreeStyle Lancets) As directed lisinopril-hydrochlorothiazide 20-25 mg 1 tab PO DAILY 90 days metformin 1,000 mg PO BID 90 days nystatin 4 mL PO QID omeprazole 40 mg PO DAILY 90 days Tobacco use date assessed: 08/19/23 Dental Screening Dental Screen Date: 08/19/23 Did you have a dental visit in the last 12 months?: Yes Did you have a dental problem in the last 6 months where you did not have access to dental care?: No Was dental information given to patient?: Patient has dentist HPI DM, HTN,HLD HPI Details Bianca is 53-year-old female here today for follow-up visit.? Pmhx significant for DMII, HTN, anemia. GERD. Concern-- > she reports a sexual partner with recently positive for hepatitis-C. She would like to be checked for hepatitis-C .. ? .. ? DMII: REport she was on metformin 1000mg BID, Trulicity 3mg weekly?, unfortunately has been out of Trulicity over last 2 months. Most recent A1c is 6.8.? Denies any polyuria and polydipsia. She has been trying to make lifestyle changes and reducing her carbohydrates.? Has lost weight since last office visit. ? .. ? HTN:? Blood pressure today in office acceptable., patient denies any headaches, chest pains, vision issues or palpitations. ? .. ? HLD:? Continues on statin therapy though no recent lipid panel.? Will continue to follow with goal LDL to be below 100. Laboratory Tests 08/16/23 09:42 Hgb 11.1 L Creatinine 0.69 Fasting Glucose 153 H Hemoglobin A1c % 6.8 H Cholesterol 187 LDL Cholesterol, C alc 110 H PFSH Medical History Hyperlipidemia Iron deficiency anemia DMII (diabetes mellitus, type 2) HTN (hypertension) Acid reflux Surgical History H/O esophagogastroduodenoscopy H/O colonoscopy Hx of dilation and curettage Family History Brother Lymphoma Father Hypertension Diabetes Brother No problems noted. Social History Household Members: Spouse Housing: House Alcohol intake: never Patient Tobacco Use Status: Never used Tobacco e-Cigarette/Vaping Use: Never Used Second Hand Smoke Exposure: No service: No Current occupational status: unemployed Cognitive needs: No Hearing needs: No Vision needs: No Questionnaire PHQ-9 Over the last 2 weeks, how often have you been bothered by any of the following problems? 1. Little interest or pleasure in doing things: not at all 2. Feeling down, depressed, or hopeless: not at all 3. Trouble falling or staying asleep, or sleeping too much: not at all 4. Feeling tired or having little energy: not at all 5. Poor appetite or overeating: not at all 6. Feeling bad about yourself - or that you are a failure or have let yourself or your family down: not at all 7. Trouble concentrating on things, such as reading the newspaper or watching television: not at all 8. Moving or speaking so slowly that other people could have noticed. Or the opposite - being so fidgety or restless that you have been moving around a lot more than usual: not at all 9. Thoughts that you would be better off or of hurting yourself in some way: not at all Total score: 0 Depression Screening Interpretation: Negative Depression Screening Done: Yes 55979 - PHQ-9 Billing: Yes Source: Developed by Drs. Jovany Encarnacion, Urmila Toussaint, Nate Brown and colleagues, with an educational rachele from [employer]. Thrive Questionnaire Date Thrive assessed: 08/19/23 I am a: Patient What is your living situation today?: I have a steady place to live Within the past 12 months, did the food you bought not last and you didn't have the money to get more?: Never true Within the past 12 months, did you worry whether your food would run out before you got money to buy more?: Never true Do you have trouble paying for medicines?: No Do you have trouble getting transportation to medical appointments?: No Do you have trouble paying your heating and electricity bill?: No Do you have trouble taking care of your child, family member or friend?: No Do you have trouble with day-to-day activities such as bathing, preparing meals, shopping, managing finances, etc.?: No Are you currently unemployed and looking for a job?: No Are you interested in more education?: No Currently or been in a relationship where the following occur: no concerns reported THRIVE Score: 0 AUDIT C Alcohol Use Questionnaire (AUDIT-C) 1. How often do you have a drink containing alcohol?: Never 3. How often do you have six or more drinks on one occasion?: Never Total Score: 0 SINDI-7 AMB Questionnaire SINDI-7 Date SINDI - 7 assessed: 08/19/23 Feeling nervous, anxious, or on edge: 0 = Not at all Not being able to stop or control worryin = Not at all Worrying too much about different things: 0 = Not at all Trouble relaxin = Not at all Being so restless that it is hard to sit still: 0 = Not at all Becoming easily annoyed or irritable: 0 = Not at all Feeling afraid as if something awful might happen: 0 = Not at all Total SINDI-7 score (0-4 normal; 5-9 mild; 10-14 moderate; 15-21 severe): 0 Source: Developed by Drs. Jovany Encarnacion, Nate Norris and colleagues, with an educational rachele from [employer]. SINDI-7 Assessment Billing SINDI-7 Assessment Tool: SINDI-7 Assessment 99615 Review of Systems Const Denies headache(s) Eyes Denies loss of vision ENT Denies vertigo, Denies dizziness, Denies headache(s) and Denies sore throat Card Denies chest pain, Denies leg edema and Denies lightheadedness Resp Denies cough, Denies hemoptysis and Denies wheezing GI Denies abdominal pain, Denies melena, Denies constipation, Denies diarrhea and Denies vomiting Denies urinary frequency, Denies dysuria and Denies urinary urgency Musc Denies arthralgias, Denies joint swelling, Denies numbness and Denies tingling Neuro Denies Abnormal speech present, Denies behavioral changes, Denies vertigo, Denies dizziness, Denies headache(s), Denies loss of vision, Denies memory loss, Denies numbness and Denies tingling Psych Denies anxiety, Denies behavioral changes, Denies depression, Denies memory loss and Denies panic attacks Abdifatah/Lymph Denies easy bleeding and Denies easy bruising Aller/Immun Denies wheezing Physical exam (Primary Care) Vital Signs: Last Vital Signs Pulse 100 08/19/23 14:13 BP 144/76 H 08/19/23 14:13 Pulse Ox 98 08/19/23 14:13 Oxygen Delivery Method Room Air 08/19/23 14:13 BMI result Body Mass Index 39.2 BMI Assessment/Plan discussion: High Tobacco/Smoking Status: Tobacco use Status Tobacco use date assessed 08/19/23 08/19/23 14:14 Patient Tobacco Use Status Never used Tobacco 08/19/23 14:14 Tobacco use type 05/17/23 07:59 e-Cigarette/Vaping Use Never Used 08/19/23 14:14 PHQ-9: PHQ-9 Score PHQ-9: Total score 0 08/19/23 14:25 Depression Screening Interpretation: Negative Thrive Assessment: Date of Thrive Assessment Date Thrive assessed 08/19/23 08/19/23 14:25 Currently or been in a relationship where the following occur: no concerns reported Const Other: OBESE General: healthy appearing, no acute distress, alert and awake Nutritional Appearance: well nourished Orientation/consciousness: oriented to person, oriented to place and oriented to time HENMT Ears: TM's normal bilaterally General nose exam: Normal nasal mucous membranes and turbinates present Eyes Conjunctivae: conjunctivae normal Sclerae: sclerae normal Pupils: Equal, round and reactive pupils present Neck Neck: Yes no lymphadenopathy and Yes no JVD Thyroid: Thyroid normal Carotids: no bruits Resp Effort & Inspection: normal respiratory effort and not tachypneic Auscultation: no crackles, no rales, no rhonchi and no wheezes Cardio Rate: regular rate Rhythm: regular rhythm Heart sounds: no murmurs and normal S1 and S2 GI Palpation (GI): Soft to palpation, nontender, no hepatomegaly and no splenomegaly Auscultation: normal bowel sounds Skin General skin exam: no rashes or lesions noted and dry skin Neuro General: oriented to person, oriented to place and oriented to time Cranial nerves: Yes Equal, round and reactive pupils present Speech: No Abnormal speech present Gait exam (Neuro): Normal gait present Motor exam (neuro): no tremor noted Extrem Right upper extremity: full ROM Left upper extremity: full ROM Right lower extremity: full ROM; no edema Left lower extremity: full ROM; no edema Psych Mental Status: mental status grossly normal Speech and movement: Normal speech and movement present Affect: normal affect Attitude: cooperative Thought process: Normal thought process present Assessment and Plan Assessment & Plan (1) HLD (hyperlipidemia): Code(s): E78.5 - Hyperlipidemia, unspecified Qualifiers: Hyperlipidemia type: mixed hyperlipidemia Qualified Code(s): E78.2 - Mixed hyperlipidemia Plan: Has not been able to tolerate atorvastatin due to GI issues. She is willing to transition to simvastatin low-dose. Most recent LDL was 110. Goal LDL to be below 100. (2) DMII (diabetes mellitus, type 2): Code(s): E11.9 - Type 2 diabetes mellitus without complications Qualifiers: Diabetes mellitus mcc insulin use: without long wall shear operator use Diabetes mellitus complication status: with hyperglycemia Qualified Code(s): E11.65 - Type 2 diabetes mellitus with hyperglycemia Plan: Patient's type 2 diabetes well controlled. Most recent A1c is 6.8. She has been out of Trulicity over last 2 months.. Will continue metformin a 1000 b.i.d.. She has been working on being more physically active. Will work on lifestyle to reduce carbohydrates in her diet. Goal A1c is to be below 7.0 (3) HTN (hypertension): Code(s): I10 - Essential (primary) hypertension Qualifiers: Hypertension type: essential hypertension Qualified Code(s): I10 - Essential (primary) hypertension Plan: Blood pressure today in office acceptable. Will continue her current dose of lisinopril- hydrochlorothiazide. Goal blood pressure to be below 140/90 (4) Morbid obesity: Code(s): E66.01 - Morbid (severe) obesity due to excess calories Plan: Patient does understand her BMI is over 30 will work on being more physically active and adapt to better eating habits to reduce her weight (5) Exposure to hepatitis C: Code(s): Z20.5 - Contact with and (suspected) exposure to viral hepatitis Orders: Orders Lipid Panel 6 Months E78.2 - Mixed hyperlipidemia Hepatitis B,C Profile Today E11.65 - Type 2 diabetes mellitus with hyperglycemia, Z11.3 - Encounter for screening for infections with a predominantly sexual mode of transmission Comprehensive [place]. Panel Fast 6 Months E11.65 - Type 2 diabetes mellitus with hyperglycemia Hepatitis C Viral Load Today Z20.5 - Contact with and (suspected) exposure to viral hepatitis Microalbumin, Random (w Creat) 6 Months E11.65 - Type 2 diabetes mellitus with hyperglycemia Referrals Ophthalmology Referral E11.65 - Type 2 diabetes mellitus with hyperglycemia Medications: New simvastatin 10 mg PO DAILY 90 tabs 1RF 90 days E78.2 - Mixed hyperlipidemia Refilled dulaglutide (Trulicity) 3 mg (0.5 mL) subcut QWEEK 2 mL 3RF E11.65 - Type 2 diabetes mellitus with hyperglycemia lisinopril-hydrochlorothiazide 20-25 mg 1 tab PO DAILY 90 tabs 1RF 90 days I10 - Essential (primary) hypertension metformin 1,000 mg PO BID 180 tabs 1RF 90 days E11.65 - Type 2 diabetes mellitus with hyperglycemia amlodipine 5 mg PO DAILY 90 tabs 1RF 90 days I10 - Essential (primary) hypertension Coding Level of Care Code Est Pt Level 4 (36031) Diagnoses Mixed hyperlipidemia E78.2 Hyperlipidemia type: mixed hyperlipidemia Type 2 diabetes mellitus with hyperglycemia, without long-term current use of insulin E11.65 Diabetes mellitus mcc insulin use: without long wall shear operator use Diabetes mellitus complication status: with hyperglycemia Essential hypertension I10 Hypertension type: essential hypertension Morbid obesity E66.01 Exposure to hepatitis C Z20.5 Additional Codes SINDI-7 Assessment Billing - SINDI-7 Assessment Tool: SINDI-7 Assessment [id number] ([id number])
== END 2023-08-19 14:47 | disposition home or self-care (01) ==
PROVIDERS: PCP Physician Assistant; Visit Provider Physician Assistant
DX: E11.65 Type 2 diabetes mellitus with hyperglycemia (principal); E66.01 Morbid (severe) obesity due to excess calories; Z68.39 Body mass index [BMI] 39.0-39.9, adult; E78.2 Mixed hyperlipidemia; I10 Essential (primary) hypertension; Z20.5 Contact with and (suspected) exposure to viral hepatitis
CPT/HCPCS: 99214

== ENCOUNTER 2024-02-12 07:37 | Outpatient (REF) | payer OTHER, SELFPAY ==
[2024-02-12 08:31] LABS: Alanine Aminotransferase 22 U/L (0-31); Albumin Level 4.4 g/dL (3.5-5.0); Alkaline Phosphatase 77 U/L (39-117); Anion Gap 14 (12-20); Aspartate Amino Transferase 18 U/L (5-31); Bilirubin Total 0.3 mg/dL (0.0-1.0); Blood Urea Nitrogen 15 mg/dL (9-16); Calcium 8.8 mg/dL (8.4-10.2); Carbon Dioxide 27 mmol/L (22-29); Chloride 103 mmol/L (96-108); Cholesterol 222 mg/dL (<200); Estimated Glomerular Filt Rate > 60; Glucose Fasting 184 mg/dL (60-99); HDL Cholesterol 38 mg/dL (>40); LDL Cholesterol Calculated 132 mg/dL (<100); Potassium 3.7 mmol/L (3.3-5.1); Sodium 140 mmol/L (135-145); Total Protein 7.6 g/dL (6.5-8.0); Triglycerides 261 mg/dL (<150)
[2024-02-12 08:55] LABS: HBS Num1 143.94 mIU/mL (0-7.99); HBc Num1 0.54 S/CO (0.00-0.79); HBsAGNum1 0.26 S/CO (0.00-0.99); Hepatitis B Core Antibody Nonreactive (Nonreactive); Hepatitis B Surface Antigen Negative (Negative); ~HepC Num1 0.21 S/CO (0.00-0.79); ~Hepatitis B Surface Antibody REACTIVE (Nonreactive); ~Hepatitis C Antibody Nonreactive (Nonreactive)
[2024-02-12 10:25] LABS: Creatinine Urine 197.97 mg/dL; Microalbum/Creatinine Ratio Ur 12.6 ug/mg cr (<30)
[2024-02-14 08:29] LABS: HCV Log PCR <1.18 NOT DETECTED Log IU/mL (NOT DETECTED); HepC Viral Load <15 NOT DETECTED IU/mL (NOT DETECTED)
== END 2024-02-12 07:38 | disposition home or self-care (01) ==
LOC: HO.LAB 07:37
PROVIDERS: PCP Physician Assistant; Visit Provider Physician Assistant
DX: E11.65 Type 2 diabetes mellitus with hyperglycemia (principal); Z20.5 Contact with and (suspected) exposure to viral hepatitis; E78.2 Mixed hyperlipidemia; Z11.3 Encounter for screening for infections with a predominantly sexual mode of transmission
CPT/HCPCS: 36415; 80053; 80061; 82043; 82570; 86704; 86706; 86803; 87340; 87522

== ENCOUNTER 2024-02-18 14:06 | Outpatient (AMB) | payer OTHER, SELFPAY ==
--- NOTE | 2024-02-18 14:22 | MHC.PC.OV ---
Vital Signs 02/18/24 14:29 Height 5 ft 4 in Weight 226 lb 6 oz BMI 38.9 BP 136/80 Blood Pressure Location Lt brachial Position Sitting Pulse 80 Pulse Source Pulse Oximeter Pulse Oximetry (%) 99 Oxygen Delivery Method Room Air Intake Visit Reasons: 6mth f/u Java Software Developer Required: Yes Java Software Developer Language: Mal[place]ian Accompanied by: Self / Same As Patient Allergies pneumococcal vaccine [From Pneumovax-23] Adverse Reaction (Intermediate, Verified 02/18/24 14:29) Wheezing Medication List - Last Reconciled 02/18/24 by Alo Garcia PA-C amlodipine 5 mg PO DAILY 90 days blood pressure monitor (Blood Pressure Kit) As directed blood sugar diagnostic (FreeStyle Lite Strips) As directed blood-glucose meter (FreeStyle [place] Lite kit) As directed dulaglutide (Trulicity) 3 mg (0.5 mL) subcut QWEEK lancets (FreeStyle Lancets) As directed lisinopril-hydrochlorothiazide 20-25 mg 1 tab PO DAILY 90 days metformin 1,000 mg PO BID 90 days nystatin 4 mL PO QID omeprazole 40 mg PO DAILY 90 days omeprazole 40 mg PO DAILY 90 days simvastatin 10 mg PO DAILY 90 days Tobacco use date assessed: 08/19/23 Dental Screening Dental Screen Date: 08/19/23 HPI 6mth f/u HPI Details Bianca is 53-year-old female here today for follow-up visit.? Pmhx significant for DMII, HTN, anemia. GERD. Concern-- > reports her right shoulder has been painful has some decreased range of motion over the last 3 months. She denies any notable trauma to her right shoulder though does report feeling a pain in her shoulder when cleaning her home. .. ? .. ? DMII: REport she was on metformin 1000mg BID, Trulicity 3mg weekly?, unfortunately has been out of Trulicity over last 2 months. Today's A1c at 8.5.? Denies any polyuria and polydipsia. She does report Trulicity 3 mg did cause her some hypoglycemia. PLAN: Will transition to alternative GLP 1 for better glycemic control and added benefit of weight loss. ? .. ? HTN:? Blood pressure today in office acceptable., patient denies any headaches, chest pains, vision issues or palpitations. ? .. ? HLD:? Recent lipid panel showing suboptimal control over LDL. Will increase her simvastatin to 40 mg Will continue to follow with goal LDL to be below 100 Laboratory Tests 10/23/21 03/13/22 02/18/24 09:33 13:33 14:31 Hgb A1c (Clinic) 8.1 H 7.7 H 8.5 H PFSH Medical History Hyperlipidemia Iron deficiency anemia DMII (diabetes mellitus, type 2) HTN (hypertension) Acid reflux Surgical History H/O esophagogastroduodenoscopy H/O colonoscopy Hx of dilation and curettage Family History Brother Lymphoma Father Hypertension Diabetes Brother No problems noted. Social History Household Members: Spouse Housing: House Alcohol intake: never Patient Tobacco Use Status: Never used Tobacco e-Cigarette/Vaping Use: Never Used Second Hand Smoke Exposure: No service: No Current occupational status: unemployed Cognitive needs: No Hearing needs: No Vision needs: No Questionnaire Thrive Questionnaire Date Thrive assessed: 08/19/23 SINDI-7 AMB Questionnaire SINDI-7 Date SINDI - 7 assessed: 08/19/23 Source: Developed by Drs. Jovany Encarnacion, Urmila Toussaint, Nate Brown and colleagues, with an educational rachele from [employer]. Review of Systems Const Denies headache(s) Eyes Denies loss of vision ENT Denies vertigo, Denies dizziness, Denies headache(s) and Denies sore throat Card Denies chest pain, Denies leg edema and Denies lightheadedness Resp Denies cough, Denies hemoptysis and Denies wheezing GI Denies abdominal pain, Denies melena, Denies constipation, Denies diarrhea and Denies vomiting Denies urinary frequency, Denies dysuria and Denies urinary urgency Musc Denies arthralgias, Denies joint swelling, Denies numbness and Denies tingling Neuro Denies Abnormal speech present, Denies behavioral changes, Denies vertigo, Denies dizziness, Denies headache(s), Denies loss of vision, Denies memory loss, Denies numbness and Denies tingling Psych Denies anxiety, Denies behavioral changes, Denies depression, Denies memory loss and Denies panic attacks Abdifatah/Lymph Denies easy bleeding and Denies easy bruising Aller/Immun Denies wheezing Physical exam (Primary Care) Vital Signs: Last Vital Signs Pulse 80 02/18/24 14:29 BP 136/80 02/18/24 14:29 Pulse Ox 99 02/18/24 14:29 Oxygen Delivery Method Room Air 02/18/24 14:29 BMI result Body Mass Index 38.9 Tobacco/Smoking Status: Tobacco use Status Tobacco use date assessed 08/19/23 02/18/24 14:25 Patient Tobacco Use Status Never used Tobacco 02/18/24 14:25 Tobacco use type 05/17/23 07:59 e-Cigarette/Vaping Use Never Used 02/18/24 14:25 Thrive Assessment: Date of Thrive Assessment Date Thrive assessed 08/19/23 02/18/24 14:25 Const General: healthy appearing, no acute distress, alert and awake Nutritional Appearance: well nourished Orientation/consciousness: oriented to person, oriented to place and oriented to time HENMT Ears: TM's normal bilaterally General nose exam: Normal nasal mucous membranes and turbinates present Eyes Conjunctivae: conjunctivae normal Sclerae: sclerae normal Pupils: Equal, round and reactive pupils present Neck Neck: Yes no lymphadenopathy and Yes no JVD Thyroid: Thyroid normal Carotids: no bruits Resp Effort & Inspection: normal respiratory effort and not tachypneic Auscultation: no crackles, no rales, no rhonchi and no wheezes Cardio Rate: regular rate Rhythm: regular rhythm Heart sounds: no murmurs and normal S1 and S2 GI Palpation (GI): Soft to palpation, nontender, no hepatomegaly and no splenomegaly Auscultation: normal bowel sounds Skin General skin exam: no rashes or lesions noted and dry skin Neuro General: oriented to person, oriented to place and oriented to time Cranial nerves: Yes Equal, round and reactive pupils present Speech: No Abnormal speech present Gait exam (Neuro): Normal gait present Motor exam (neuro): no tremor noted Extrem Other: RIGHT SHOULDER LIMITED RANGE OF MOTION NOTED Right upper extremity: full ROM Left upper extremity: full ROM Right lower extremity: full ROM; no edema Left lower extremity: full ROM; no edema Psych Mental Status: mental status grossly normal Speech and movement: Normal speech and movement present Affect: normal affect Attitude: cooperative Thought process: Normal thought process present Results AMB Hemoglobin A1c AMB Hemoglobin A1c 8.5 % Last Edit by SHEYLA Monae on 02/18/24 14:38 Results Reviewed Results Reviewed: Laboratory Last Values Hgb A1c (Clinic) 8.5 % (4.0-6.0) H 02/18/24 14:31 Assessment and Plan Assessment & Plan (1) HLD (hyperlipidemia): Code(s): E78.5 - Hyperlipidemia, unspecified Qualifiers: Hyperlipidemia type: mixed hyperlipidemia Qualified Code(s): E78.2 - Mixed hyperlipidemia Plan: Has not been able to tolerate atorvastatin due to GI issues. Unfortunately lipid panel showing suboptimal control over LDL and total cholesterol. Will increase her simvastatin 40 mg.. Goal LDL to be below 100. (2) DMII (diabetes mellitus, type 2): Code(s): E11.9 - Type 2 diabetes mellitus without complications Qualifiers: Diabetes mellitus public transportation inspector insulin use: without care home use Diabetes mellitus complication status: with hyperglycemia Qualified Code(s): E11.65 - Type 2 diabetes mellitus with hyperglycemia Plan: Patient's type 2 diabetes suboptimally controlled with A1c above 8. Has not been using Trulicity due to unavailability at pharmacy and hypoglycemia. She is willing to transition to an alternative GLP 1 that may be more available at pharmacy.. Will work on lifestyle to reduce carbohydrates in her diet. Goal A1c is to be below 7.0 (3) HTN (hypertension): Code(s): I10 - Essential (primary) hypertension Qualifiers: Hypertension type: essential hypertension Qualified Code(s): I10 - Essential (primary) hypertension Plan: Blood pressure today in office acceptable. Will continue her current dose of lisinopril- hydrochlorothiazide. Goal blood pressure to be below 140/90 (4) Right shoulder tendonitis: Code(s): M77.8 - Other enthesopathies, not elsewhere classified Plan: Patient's signs and symptoms of right shoulder pain decreased range of motion most consistent with a right shoulder tendinitis. Advised on physical therapy though she declines at this. She is interested NSAID and right shoulder x-ray. Orders: Orders AMB Hemoglobin A1c Today E11.65 - Type 2 diabetes mellitus with hyperglycemia Complete Blood Count no Diff Today E11.65 - Type 2 diabetes mellitus with hyperglycemia Hemoglobin A1c Today E11.65 - Type 2 diabetes mellitus with hyperglycemia XR shoulder RT min 2V Today M77.8 - Other enthesopathies, not elsewhere classified Lipid Panel Today E78.2 - Mixed hyperlipidemia Comprehensive [place]. Panel Fast Today E11.65 - Type 2 diabetes mellitus with hyperglycemia Medications: New simvastatin 40 mg PO DAILY 90 days 90 tabs 1RF E78.2 - Mixed hyperlipidemia tirzepatide (Mounjaro) 5 mg (0.5 mL) subcut QWEEK 4 weeks 2 mL 1RF E11.65 - Type 2 diabetes mellitus with hyperglycemia ibuprofen 800 mg PO Q8H 15 days 45 tabs 0RF M77.8 - Other enthesopathies, not elsewhere classified Refilled lisinopril-hydrochlorothiazide 20-25 mg 1 tab PO DAILY 90 days 90 tabs 1RF I10 - Essential (primary) hypertension omeprazole 40 mg PO DAILY 90 days 90 caps 1RF K21.9 - Gastro-esophageal reflux disease without esophagitis blood sugar diagnostic (FreeStyle Lite Strips) As directed 100 ea 1RF E11.65 - Type 2 diabetes mellitus with hyperglycemia, E11.9 - Type 2 diabetes mellitus without complications, K21.9 - Gastro-esophageal reflux disease without esophagitis amlodipine 5 mg PO DAILY 90 days 90 tabs 1RF I10 - Essential (primary) hypertension lancets (FreeStyle Lancets) As directed 100 ea 3RF E11.65 - Type 2 diabetes mellitus with hyperglycemia, E11.9 - Type 2 diabetes mellitus without complications [facility] Reason: Doctor's Order 3 mg (0.5 mL) subcut QWEEK 2 mL 3RF E11.65 - Type 2 diabetes mellitus with hyperglycemia Patient Instructions: Goal: A1c to be below 7.0 Barrier: Adherence to physical activity and healthy eating habits Coding Level of Care Code Est Pt Level 4 (27140) Diagnoses Mixed hyperlipidemia E78.2 Hyperlipidemia type: mixed hyperlipidemia Type 2 diabetes mellitus with hyperglycemia, without long-term current use of insulin E11.65 Diabetes mellitus public transportation inspector insulin use: without public transportation inspector use Diabetes mellitus complication status: with hyperglycemia Essential hypertension I10 Hypertension type: essential hypertension Right shoulder tendonitis M77.8
[2024-02-18 14:29] VITALS: BP 136/80; PULSE 80; O2SAT 99; BMI 38.9
== END 2024-02-18 15:04 | disposition home or self-care (01) ==
PROVIDERS: PCP Physician Assistant; Visit Provider Physician Assistant
DX: E78.2 Mixed hyperlipidemia (principal); E11.65 Type 2 diabetes mellitus with hyperglycemia; I10 Essential (primary) hypertension; M77.8 Other enthesopathies, not elsewhere classified
CPT/HCPCS: 83036; 99214

== ENCOUNTER 2024-05-11 06:38 | Outpatient (REF) | payer OTHER, SELFPAY ==
--- NOTE | ~2024-05-11 | XR_ITS ---
EXAMINATION: XR SHOULDER, RIGHT CLINICAL INFORMATION: Right shoulder pain. COMPARISON: None available. TECHNIQUE: AP external rotation, Grashey, scapular Y, and axillary views of the right shoulder. FINDINGS: No acute fracture or dislocation. Glenohumeral and acromioclavicular alignment is anatomic with preserved joint spaces. No acute soft tissue abnormality. No abnormal soft tissue calcifications. XR/XR shoulder RT min 2V IMPRESSION: No acute fracture or dislocation. Electronically signed by: Dex Sampson MD 05/11/2024 08:45 AM MARLON RUBIN
[2024-05-11 07:02] LABS: Mean Corpuscular HGB Conc 30.8 g/dl (31.0-35.0); Mean Corpuscular Hemoglobin 23.8 pg (27.0-33.0); Mean Corpuscular Volume 77.4 fL (80.0-98.0); Mean Platelet Volume 12.9 fL (9.4-12.3); Platelet Count 204 X10*3/uL (160-400); Red Blood Count 5.04 X10*6/uL (4.20-5.50); Red Cell Distribution Width 15.5 % (11.0-16.0); White Blood Count 7.2 X10*3/uL (4.8-10.8)
[2024-05-11 07:16] LABS: Estimated Average Glucose 160 mg/dL; Hemoglobin A1C 177.5177 umol/L; Hemoglobin A1c % 7.2 % (<6.0); Total Hemoglobin (HGBA1C) 3234.2182 umol/L
[2024-05-11 07:27] LABS: Alanine Aminotransferase 19 U/L (0-31); Albumin Level 4.4 g/dL (3.5-5.0); Alkaline Phosphatase 75 U/L (39-117); Anion Gap 14 (12-20); Aspartate Amino Transferase 28 U/L (5-31); Bilirubin Total 0.2 mg/dL (0.0-1.0); Blood Urea Nitrogen 19 mg/dL (9-16); Calcium 9.6 mg/dL (8.4-10.2); Carbon Dioxide 25 mmol/L (22-29); Chloride 105 mmol/L (96-108); Cholesterol 178 mg/dL (<200); Estimated Glomerular Filt Rate > 60; Glucose Fasting 141 mg/dL (60-99); HDL Cholesterol 37 mg/dL (>40); LDL Cholesterol Calculated 104 mg/dL (<100); Sodium 140 mmol/L (135-145); Total Protein 7.6 g/dL (6.5-8.0); Triglycerides 187 mg/dL (<150)
== END 2024-05-11 06:39 | disposition home or self-care (01) ==
LOC: HO.LAB 06:38
PROVIDERS: PCP Physician Assistant; Visit Provider Physician Assistant
DX: E11.65 Type 2 diabetes mellitus with hyperglycemia (principal); E78.2 Mixed hyperlipidemia; M77.8 Other enthesopathies, not elsewhere classified
CPT/HCPCS: 36415; 73030; 80053; 80061; 83036; 85027

== ENCOUNTER 2024-05-18 11:08 | Outpatient (AMB) | payer OTHER, SELFPAY ==
--- NOTE | 2024-05-18 11:35 | MHC.PC.OV ---
Vital Signs 05/18/24 11:38 Height 5 ft 4 in Weight 211 lb 4 oz BMI 36.3 BP 138/82 Blood Pressure Location Lt brachial Position Sitting Pulse 96 Pulse Source Pulse Oximeter Pulse Oximetry (%) 98 Oxygen Delivery Method Room Air Intake Visit Reasons: Annual Physical Intake Note: Patient is here today for a physical. Integration Technician Required: No Accompanied by: Self / Same As Patient Allergies pneumococcal vaccine [From Pneumovax-23] Adverse Reaction (Intermediate, Verified 05/18/24 12:07) Wheezing Medication List - Last Reconciled 05/18/24 by Alo Garcia PA-C amlodipine 5 mg PO DAILY 90 days blood pressure monitor (Blood Pressure Kit) As directed blood sugar diagnostic (FreeStyle Lite Strips) As directed blood-glucose meter (FreeStyle [place] Lite kit) As directed ibuprofen 800 mg PO Q8H 15 days lancets (FreeStyle Lancets) As directed lisinopril-hydrochlorothiazide 20-25 mg 1 tab PO DAILY 90 days metformin 1,000 mg PO BID 90 days nystatin 4 mL PO QID omeprazole 40 mg PO DAILY 90 days simvastatin 40 mg PO DAILY 90 days tirzepatide (Mounjaro) 5 mg (0.5 mL) subcut QWEEK 4 weeks Tobacco use date assessed: 08/19/23 Dental Screening Dental Screen Date: 08/19/23 HPI Annual Physical HPI Details Bianca is the 4-year-old female here today for annual physical. ? Pmhx significant for DMII, HTN, anemia. GERD. Concern-- > none today .. ? .. ? DMII: REport she was on metformin 1000mg BID, Mounjaro 5 mg weekly . Patient has lost significant amount of weight and her A1c is significantly improved. Denies any polyuria and polydipsia. She does report Trulicity 3 mg did cause her some hypoglycemia. PLAN: Up titrate her GLP dose to 7.5 mg weekly. ? .. ? HTN:? Blood pressure today in office acceptable., patient denies any headaches, chest pains, vision issues or palpitations. ? .. ? HLD:? Recent lipid panel showing significant improvement in her total cholesterol and LDL. Will continue her on her current doses simvastatin with goal LDL to be below 100.. Colonoscopy: Done 2020, hyperplastic polyp repeat 10 years. Sodder: Has seen a SCHOOL TRAFFIC SUPERVISOR at a local [facility] , .. Vaccine: UTD with COVID Vaccine, need tdap, decline flu vaccine. .. mammo: need up to date mammo Laboratory Tests 02/12/24 02/12/24 02/18/24 07:50 Unknown 14:31 MCV Fasting Glucose Hgb A1c (Clinic) 8.5 H Hemoglobin A1c % Triglycerides Cholesterol LDL Cholesterol, C alc 132 H Urine Microalbumin 25.0 05/11/24 06:57 MCV 77.4 L Fasting Glucose 141 H Hgb A1c (Clinic) Hemoglobin A1c % 7.2 H Triglycerides 187 H Cholesterol 178 LDL Cholesterol, C alc 104 H Urine Microalbumin PFSH Medical History Hyperlipidemia Iron deficiency anemia DMII (diabetes mellitus, type 2) HTN (hypertension) Acid reflux Surgical History H/O esophagogastroduodenoscopy H/O colonoscopy Hx of dilation and curettage Family History Brother Lymphoma Father Hypertension Diabetes Brother No problems noted. 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 1. Little interest or pleasure in doing things: not at all 2. Feeling down, depressed, or hopeless: not at all 3. Trouble falling or staying asleep, or sleeping too much: not at all 4. Feeling tired or having little energy: not at all 5. Poor appetite or overeating: not at all 6. Feeling bad about yourself - or that you are a failure or have let yourself or your family down: not at all 7. Trouble concentrating on things, such as reading the newspaper or watching television: not at all 8. Moving or speaking so slowly that other people could have noticed. Or the opposite - being so fidgety or restless that you have been moving around a lot more than usual: not at all 9. Thoughts that you would be better off or of hurting yourself in some way: not at all Total score: 0 Depression Screening Interpretation: Negative Depression Screening Done: Yes 89870 - PHQ-9 Billing: Yes Source: Developed by Drs. Jovany Encarnacion, Urmila Toussaint, Nate Brown and colleagues, with an educational rachele from [employer]. Thrive Questionnaire Date Thrive assessed: 05/18/24 I am a: Patient What is your living situation today?: I have a steady place to live Within the past 12 months, did the food you bought not last and you didn't have the money to get more?: Never true Within the past 12 months, did you worry whether your food would run out before you got money to buy more?: Never true Do you have trouble paying for medicines?: No Do you have trouble getting transportation to medical appointments?: No Do you have trouble paying your heating and electricity bill?: No Do you have trouble taking care of your child, family member or friend?: No Do you have trouble with day-to-day activities such as bathing, preparing meals, shopping, managing finances, etc.?: No Are you currently unemployed and looking for a job?: No Are you interested in more education?: No Please select the resources that you would like help with: None Currently or been in a relationship where the following occur: No concerns reported THRIVE Score: 0 AUDIT C Alcohol Use Questionnaire (AUDIT-C) 1. How often do you have a drink containing alcohol?: Never 3. How often do you have six or more drinks on one occasion?: Never Total Score: 0 SINDI-7 AMB Questionnaire SINDI-7 Date SINDI - 7 assessed: 05/18/24 Feeling nervous, anxious, or on edge: 0 = Not at all Not being able to stop or control worryin = Not at all Worrying too much about different things: 0 = Not at all Trouble relaxin = Not at all Being so restless that it is hard to sit still: 0 = Not at all Becoming easily annoyed or irritable: 0 = Not at all Feeling afraid as if something awful might happen: 0 = Not at all Total SINDI-7 score (0-4 normal; 5-9 mild; 10-14 moderate; 15-21 severe): 0 Source: Developed by Drs. Jovany Encarnacion, Urmila Toussaint, Nate Brown and colleagues, with an educational rachele from [employer]. SINDI-7 Assessment Billing SINDI-7 Assessment Tool: SINDI-7 Assessment 68923 Review of Systems Const Denies body aches, Denies chills, Denies excessive sweating, Denies fatigue, Denies fever(s) and Denies headache(s) Eyes Denies blurry vision ENT Denies dysphagia, Denies vertigo, Denies dizziness, Denies headache(s), Denies hearing loss and Denies tinnitus Card Denies chest pain, Denies chest pain with activity, Denies syncope, Denies irregular heart rhythm and Denies dyspnea Resp Denies chest congestion, Denies cough, Denies hemoptysis, Denies dyspnea and Denies wheezing GI Denies abdominal pain, Denies melena, Denies hematochezia, Denies coffee ground emesis, Denies dysphagia, Denies diarrhea, Denies nausea and Denies vomiting Denies urinary frequency, Denies dysuria, Denies urinary hesitancy and Denies urinary urgency Musc Denies arthralgias, Denies limited range of motion, Denies muscle cramps and Denies muscle weakness Skin/Breast Denies rash and Denies skin ulcer Neuro Denies Abnormal speech present, Denies confusion, Denies vertigo, Denies dizziness, Denies syncope, Denies headache(s), Denies memory loss and Denies seizure-like activity Psych Denies anxiety, Denies confusion, Denies depression, Denies memory loss, Denies panic attacks and Denies paranoia Endo Denies excessive sweating, Denies fatigue, Denies flushing, Denies polydipsia and Denies polyuria Aller/Immun Denies wheezing Physical exam (Primary Care) Vital Signs: Last Vital Signs Pulse 96 05/18/24 11:38 BP 138/82 05/18/24 11:38 Pulse Ox 98 05/18/24 11:38 Oxygen Delivery Method Room Air 05/18/24 11:38 BMI result Body Mass Index 36.3 BMI Assessment/Plan discussion: High BMI High, discussed plan: lifestyle, weight reduction, dietary and physical activity Tobacco/Smoking Status: Tobacco use Status Tobacco use date assessed 08/19/23 05/18/24 11:35 Patient Tobacco Use Status Never used Tobacco 05/18/24 12:12 Tobacco use type 05/17/23 07:59 e-Cigarette/Vaping Use Never Used 05/18/24 12:12 PHQ-9: PHQ-9 Score PHQ-9: Total score 0 05/18/24 12:09 Depression Screening Interpretation: Negative Thrive Assessment: Date of Thrive Assessment Date Thrive assessed 05/18/24 05/18/24 11:44 Currently or been in a relationship where the following occur: No concerns reported Const General: cooperative, comfortable, no acute distress, alert and awake; No confusion Orientation/consciousness: oriented to person, oriented to place, patient oriented x3 and No confusion HENMT Head: Yes normocephalic Ears: external ears normal and TM's normal bilaterally Face and sinus: No sinus tenderness Mouth: Normal oral and palatal mucosa present and tongue normal Teeth and gingiva: dentition normal and gingiva normal Throat: Yes posterior oropharynx normal, Yes tonsils normal and Yes uvula midline Eyes Conjunctivae: conjunctivae normal Sclerae: sclerae normal Pupils: Equal, round and reactive pupils present EOM: EOMs intact bilaterally Direct Ophthalmoscopy: No no photophobia Neck Neck: Yes no lymphadenopathy, No tender and Yes no JVD Thyroid: Thyroid normal Carotids: no bruits Chest Chest palpation & inspection: no tenderness Resp Effort & Inspection: normal respiratory effort, no audible wheezes, not labored and no stridor Auscultation: no crackles, no rales, no rhonchi and no wheezes Cardio Jugular venous distension: no JVD Rate: regular rate, not bradycardic and not tachycardic Rhythm: regular rhythm Bruits: no carotid bruits Peripheral pulses: Peripheral pulses 2+ throughout GI Inspection: Yes normal to inspection, No abdominal wall ecchymosis and No visible herniation Palpation (GI): Soft to palpation, nontender, no guarding, not rigid and No hepatosplenomegaly present Auscultation: normoactive bowel sounds General: Yes no CVA tenderness Back/Spine/Pelvis Back: no CVA tenderness and No back tenderness Cervical Spine: cervical ROM normal Thoracic/Lumbar Spine: thoracic and lumbar spine normal to inspection, straight leg raise negative bilaterally, No thoraco-lumbar ROM limited and No lumbar spinal tenderness Skin Lesions: no lesions Rashes: no rashes Wounds: no wounds Neuro General: oriented to person, oriented to place, patient oriented x3, CN's II-XI intact bilaterally and No confusion Cranial nerves: Yes Equal, round and reactive pupils present and Yes Normal accommodation reflex present Cognition (Neuro): normal cognition Speech: No Abnormal speech present Gait exam (Neuro): Normal gait present Motor exam (neuro): 5/5 motor strength present throughout Extrem Right upper extremity: full ROM; no cyanosis Left upper extremity: full ROM; no cyanosis Right lower extremity: no edema Left lower extremity: no edema Psych Appearance: grossly normal Mental Status: mental status grossly normal Affect: normal affect Attitude: cooperative Thought process: Normal thought process present Coding Level of Care Code Est Pt Prev Care 40-64y(59676) Diagnoses Annual physical exam Z00.00 Essential hypertension I10 Hypertension type: essential hypertension Type 2 diabetes mellitus with hyperglycemia, without long-term current use of insulin E11.65 Diabetes mellitus complication status: with hyperglycemia Diabetes mellitus termite treater insulin use: without shelter use Encounter for screening mammogram for malignant neoplasm of breast Z12.31 Breast cancer screening modality: mammogram Additional Codes SINDI-7 Assessment Billing - SINDI-7 Assessment Tool: SINDI-7 Assessment [id number] ([id number]) PHQ-9 - 42535 - PHQ-9 Billing: Yes ([id number]) Assessment & Plan Assessment & Plan (1) Annual physical exam: Code(s): Z00.00 - Encounter for general adult medical examination without abnormal findings Category: Medical Plan: as scheduled (2) HTN (hypertension): Code(s): I10 - Essential (primary) hypertension Category: Medical Qualifiers: Hypertension type: essential hypertension Qualified Code(s): I10 - Essential (primary) hypertension Plan: Patient's blood pressure acceptable today in office. Will continue her current dose antihypertensive medication with goal blood pressure to remain below 140/90 (3) DMII (diabetes mellitus, type 2): Code(s): E11.9 - Type 2 diabetes mellitus without complications Category: Medical Qualifiers: Diabetes mellitus complication status: with hyperglycemia Diabetes mellitus termite treater insulin use: without termite treater use Qualified Code(s): E11.65 - Type 2 diabetes mellitus with hyperglycemia Plan: Patient's type 2 diabetes suboptimally controlled though has been much better since starting GLP 1. Will increase her GLP 1 dose for added benefit of weight loss and glycemic control. Goal A1c is to be below 7.0 (4) Breast cancer screening: Code(s): Z12.39 - Encounter for other screening for malignant neoplasm of breast Category: Medical Qualifiers: Breast cancer screening modality: mammogram Qualified Code(s): Z12.31 - Encounter for screening mammogram for malignant neoplasm of breast Plan: Needs up-to-date mammogram Orders: Orders Comprehensive [facility]. Panel Fast Today E11.65 - Type 2 diabetes mellitus with hyperglycemia Microalbumin, Random (w Creat) Today I10 - Essential (primary) hypertension Lipid Panel Today E78.2 - Mixed hyperlipidemia MM screening mammo BI Today Z12.31 - Encounter for screening mammogram for malignant neoplasm of breast Complete Blood Count no Diff Today E11.65 - Type 2 diabetes mellitus with hyperglycemia Referrals Ophthalmology Referral E11.65 - Type 2 diabetes mellitus with hyperglycemia Medications: New tirzepatide (Mounjaro) 7.5 mg (0.5 mL) subcut QWEEK 2 mL 6RF 4 weeks E11.65 - Type 2 diabetes mellitus with hyperglycemia
[2024-05-18 11:38] VITALS: BP 138/82; PULSE 96; O2SAT 98; BMI 36.3
== END 2024-05-18 12:22 | disposition home or self-care (01) ==
PROVIDERS: PCP Physician Assistant; Visit Provider Physician Assistant
DX: Z00.00 Encounter for general adult medical examination without abnormal findings (principal); I10 Essential (primary) hypertension; E11.65 Type 2 diabetes mellitus with hyperglycemia; Z12.31 Encounter for screening mammogram for malignant neoplasm of breast

== ENCOUNTER → 2024-05-18 11:08 | Outpatient (BNVA) | payer OTHER, SELFPAY | PROVIDERS: PCP Physician Assistant; Visit Provider Physician Assistant | DX: Z00.00 Encounter for general adult medical examination without abnormal findings (principal); I10 Essential (primary) hypertension; E11.65 Type 2 diabetes mellitus with hyperglycemia | CPT/HCPCS: 96127; 99396 ==

== ENCOUNTER 2024-11-13 07:54 | Outpatient (REF) | payer OTHER, SELFPAY ==
[2024-11-13 08:55] LABS: Hematocrit 39.1 % (37.0-47.0); Hemoglobin 12.4 g/dl (12.0-16.0); Mean Corpuscular HGB Conc 31.7 g/dl (31.0-35.0); Mean Corpuscular Hemoglobin 25.3 pg (27.0-33.0); Mean Corpuscular Volume 79.8 fL (80.0-98.0); Mean Platelet Volume 13.3 fL (9.4-12.3); Platelet Count 180 X10*3/uL (160-400); Red Cell Distribution Width 15.7 % (11.0-16.0); White Blood Count 6.5 X10*3/uL (4.8-10.8)
[2024-11-13 09:17] LABS: Creatinine Urine 109.96 mg/dL; Microalbum/Creatinine Ratio Ur 10.9 ug/mg cr (<30)
[2024-11-13 09:27] LABS: Alanine Aminotransferase 24 U/L (0-31); Albumin Level 4.5 g/dL (3.5-5.0); Alkaline Phosphatase 75 U/L (39-117); Anion Gap 12 (12-20); Aspartate Amino Transferase 20 U/L (5-31); Bilirubin Total 0.3 mg/dL (0.0-1.0); Blood Urea Nitrogen 17 mg/dL (9-16); Calcium 9.9 mg/dL (8.4-10.2); Carbon Dioxide 29 mmol/L (22-29); Chloride 104 mmol/L (96-108); Cholesterol 219 mg/dL (<200); Estimated Glomerular Filt Rate > 60; Glucose Fasting 125 mg/dL (60-99); HDL Cholesterol 37 mg/dL (>40); LDL Cholesterol Calculated 135 mg/dL (<100); Potassium 3.8 mmol/L (3.3-5.1); Sodium 141 mmol/L (135-145); Total Protein 7.6 g/dL (6.5-8.0); Triglycerides 238 mg/dL (<150)
== END 2024-11-13 07:55 | disposition home or self-care (01) ==
LOC: HO.LAB 07:54
PROVIDERS: PCP Physician Assistant; Visit Provider Physician Assistant
DX: I10 Essential (primary) hypertension (principal); E11.65 Type 2 diabetes mellitus with hyperglycemia; E78.2 Mixed hyperlipidemia
CPT/HCPCS: 36415; 80053; 80061; 82043; 82570; 85027

== ENCOUNTER 2024-11-16 08:25 | Outpatient (AMB) | payer OTHER, SELFPAY ==
--- NOTE | 2024-11-16 08:40 | A.OFFPC_ITS ---
Vital Signs 11/16/24 08:41 Height 5 ft 4 in Weight 215 lb BMI 36.9 BP 130/80 Blood Pressure Location Lt brachial Position Sitting Pulse 83 Pulse Source Pulse Oximeter Pulse Oximetry (%) 94 Oxygen Delivery Method Room Air Intake Visit Reasons: f/u DMII / HLD Automatic Spinning Lathe Operator Required: No Accompanied by: Self / Same As Patient Allergies pneumococcal vaccine [From Pneumovax-23] Adverse Reaction (Intermediate, Verified 11/16/24 08:51) Wheezing Medication List - Last Reconciled 11/16/24 by Alo Garcia PA-C amlodipine 5 mg PO DAILY 90 days blood pressure monitor (Blood Pressure Kit) As directed blood sugar diagnostic (FreeStyle Lite Strips) As directed blood-glucose meter (FreeStyle Hewitt Lite kit) As directed ibuprofen 800 mg PO Q8H 15 days lancets (FreeStyle Lancets) As directed lisinopril-hydrochlorothiazide 20-25 mg 1 tab PO DAILY 90 days metformin 1,000 mg PO BID 90 days nystatin 4 mL PO QID omeprazole 40 mg PO DAILY 90 days semaglutide (Ozempic) 0.5 mg (0.736 mL) subcut QWEEK 4 weeks simvastatin 40 mg PO DAILY 90 days Tobacco use date assessed: 11/16/24 Dental Screening Dental Screen Date: 11/16/24 Did you have a dental visit in the last 12 months?: Yes Did you have a dental problem in the last 6 months where you did not have access to dental care?: No Was dental information given to patient?: Patient has dentist HPI f/u DMII / HLD HPI Details Bianca is the 54-year-old female here today follow-up visit. ? Pmhx significant for DMII, HTN, obesity, anemia. GERD. ? .. ? DMII: REport she was on metformin 1000mg BID, 0.5 mg Ozempic weekly. Today's A1c acceptable at 6.9 Patient has lost significant amount of weight and her A1c is significantly improved. Denies any polyuria and polydipsia. She does report Trulicity 3 mg did cause her some hypoglycemia. PLAN: Will up titrate her Ozempic to 1 mg weekly ? .. ? HTN:? Blood pressure today in office acceptable., patient denies any headaches, chest pains, vision issues or palpitations. ? .. ? HLD:? Recent lipid panel showing an increase in her total cholesterol and LDL. Will transition her from simvastatin to atorvastatin for better control of her total cholesterol and LDL. I can goal LDL to be below 100 Laboratory Tests 05/11/24 11/13/24 11/13/24 06:57 08:05 08:06 RBC 4.90 Creatinine 0.70 Fasting Glucose 125 H Triglycerides 238 H LDL Cholesterol, C alc 104 H 135 H Cholesterol 219 H Urine Microalbumin 12.0 PFSH Medical History Hyperlipidemia Iron deficiency anemia DMII (diabetes mellitus, type 2) HTN (hypertension) Acid reflux Surgical History H/O esophagogastroduodenoscopy H/O colonoscopy Hx of dilation and curettage Family History Brother Lymphoma Father Hypertension Diabetes Brother No problems noted. 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 1. Little interest or pleasure in doing things: not at all 2. Feeling down, depressed, or hopeless: not at all 3. Trouble falling or staying asleep, or sleeping too much: not at all 4. Feeling tired or having little energy: not at all 5. Poor appetite or overeating: not at all 6. Feeling bad about yourself - or that you are a failure or have let yourself or your family down: not at all 7. Trouble concentrating on things, such as reading the newspaper or watching television: not at all 8. Moving or speaking so slowly that other people could have noticed. Or the opposite - being so fidgety or restless that you have been moving around a lot more than usual: not at all 9. Thoughts that you would be better off or of hurting yourself in some way: not at all Total score: 0 Depression Screening Interpretation: Negative Depression Screening Done: Yes 27694 - PHQ-9 Billing: Yes Source: Developed by Drs. Jovany Encarnacion, Urmila Toussaint, Nate Brown and colleagues, with an educational rachele from [employer] Thrive Questionnaire Date Thrive assessed: 11/16/24 I am a: Patient What is your living situation today?: I have a steady place to live Within the past 12 months, did the food you bought not last and you didn't have the money to get more?: Never true Within the past 12 months, did you worry whether your food would run out before you got money to buy more?: Never true Do you have trouble paying for medicines?: No Do you have trouble getting transportation to medical appointments?: No Do you have trouble paying your heating and electricity bill?: No Do you have trouble taking care of your child, family member or friend?: No Do you have trouble with day-to-day activities such as bathing, preparing meals, shopping, managing finances, etc.?: No Are you currently unemployed and looking for a job?: Yes Are you interested in more education?: No Please select the resources that you would like help with: None Currently or been in a relationship where the following occur: No concerns reported THRIVE Score: 0 AUDIT C Alcohol Use Questionnaire (AUDIT-C) 1. How often do you have a drink containing alcohol?: Never 3. How often do you have six or more drinks on one occasion?: Never Total Score: 0 SINDI-7 AMB Questionnaire SINDI-7 Date SINDI - 7 assessed: 11/16/24 Feeling nervous, anxious, or on edge: 0 = Not at all Not being able to stop or control worryin = Not at all Worrying too much about different things: 0 = Not at all Trouble relaxin = Not at all Being so restless that it is hard to sit still: 0 = Not at all Becoming easily annoyed or irritable: 0 = Not at all Feeling afraid as if something awful might happen: 0 = Not at all Total SINDI-7 score (0-4 normal; 5-9 mild; 10-14 moderate; 15-21 severe): 0 Source: Developed by Drs. Jovany Encarnacion, Urmila Toussaint, Nate Brown and colleagues, with an educational rachele from [employer] SINDI-7 Assessment Billing SINDI-7 Assessment Tool: SINDI-7 Assessment 64210 Physical exam (Primary Care) Vital Signs: Last Vital Signs Pulse 83 11/16/24 08:41 BP 130/80 11/16/24 08:41 Pulse Ox 94 11/16/24 08:41 Oxygen Delivery Method Room Air 11/16/24 08:41 BMI result Body Mass Index 36.9 BMI Assessment/Plan discussion: High BMI High, discussed plan: lifestyle, weight reduction, dietary and physical activity Tobacco/Smoking Status: Tobacco use Status Tobacco use date assessed 11/16/24 11/16/24 08:45 Patient Tobacco Use Status Never used Tobacco 11/16/24 08:45 Tobacco use type 05/17/23 07:59 e-Cigarette/Vaping Use Never Used 11/16/24 08:45 PHQ-9: PHQ-9 Score PHQ-9: Total score 0 11/16/24 08:57 Depression Screening Interpretation: Negative Thrive Assessment: Date of Thrive Assessment Date Thrive assessed 11/16/24 11/16/24 08:45 Currently or been in a relationship where the following occur: No concerns reported Results AMB Hemoglobin A1c AMB Hemoglobin A1c 6.9 % Last Edit by ROSALIA Cason on 11/16/24 08 :58 Results Reviewed Results Reviewed: Laboratory Last Values Hgb A1c (Clinic) 6.9 % (4.0-6.0) H 11/16/24 08:58 Coding Level of Care Code Est Pt Level 4 (49158) Diagnoses Essential hypertension I10 Hypertension type: essential hypertension Type 2 diabetes mellitus with hyperglycemia, without long-term current use of insulin E11.65 Diabetes mellitus complication status: with hyperglycemia Diabetes mellitus 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 insulin use: without snf use Class 2 obesity E66.812 Seasonal allergic rhinitis due to pollen J30.1 Allergic rhinitis seasonality: seasonal Allergic rhinitis trigger: pollen Mixed hyperlipidemia E78.2 Hyperlipidemia type: mixed hyperlipidemia Additional Codes PHQ-9 - 61815 - PHQ-9 Billing: Yes ([id number]) SINDI-7 Assessment Billing - SINDI-7 Assessment Tool: SINDI-7 Assessment 72704 ([id number]) Assessment & Plan Assessment & Plan (1) HTN (hypertension): Code(s): I10 - Essential (primary) hypertension Category: Medical Qualifiers: Hypertension type: essential hypertension Qualified Code(s): I10 - Essential (primary) hypertension Plan: Patient's blood pressure acceptable today in office. Will continue her current dose antihypertensive medication with goal blood pressure to remain below 140/90 (2) DMII (diabetes mellitus, type 2): Code(s): E11.9 - Type 2 diabetes mellitus without complications Category: Medical Qualifiers: Diabetes mellitus complication status: with hyperglycemia Diabetes mellitus 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 insulin use: without 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 use Qualified Code(s): E11.65 - Type 2 diabetes mellitus with hyperglycemia Plan: Patient's type 2 diabetes well controlled on current management, she would like to increase her Ozempic dose for better glycemic control and will weight loss. Will increase her Ozempic to 1 mg weekly. Goal A1c is to be below 7.0 (3) Class 2 obesity: Code(s): E66.812 - Obesity, class 2 Category: Medical Plan: As per HPI patient now on GLP 1, will increase her Ozempic to 1 mg for added benefit of additional weight loss. She will continue to try to be more physically active and adapt to better eating habits to reduce her weight. (4) Allergic rhinitis: Code(s): J30.9 - Allergic rhinitis, unspecified Category: Medical Qualifiers: Allergic rhinitis seasonality: seasonal Allergic rhinitis trigger: pollen Qualified Code(s): J30.1 - Allergic rhinitis due to pollen Plan: Has been suffering with allergies over this early spring. Will supply patient with loratadine to use on a daily basis to reduce her allergy symptoms. (5) HLD (hyperlipidemia): Code(s): E78.5 - Hyperlipidemia, unspecified Category: Medical Qualifiers: Hyperlipidemia type: mixed hyperlipidemia Qualified Code(s): E78.2 - Mixed hyperlipidemia Plan: Most recent labs showing elevated LDL and a borderline high total cholesterol. Will switch her simvastatin to atorvastatin to help reduce cholesterol with a goal LDL to be below 100. Orders: Orders Lipid Panel 11/16/24 E78.2 - Mixed hyperlipidemia Comprehensive [facility]. Panel Fast 11/16/24 E11.65 - Type 2 diabetes mellitus with hyperglycemia Complete Blood Count no Diff 11/16/24 E11.65 - Type 2 diabetes mellitus with hyperglycemia AMB Hemoglobin A1c 11/16/24 Z13.9 - Encounter for screening, unspecified Medications: New atorvastatin 20 mg PO DAILY 90 tabs 1RF 90 days E78.2 - Mixed hyperlipidemia semaglutide (Ozempic) 1 mg (0.75 mL) subcut QWEEK 3 mL 3RF 4 weeks E11.65 - Type 2 diabetes mellitus with hyperglycemia loratadine (Allergy Relief (loratadine)) 10 mg PO DAILY 90 tabs 1RF 90 days J30.9 - Allergic rhinitis, unspecified Refilled lancets (FreeStyle Lancets) As directed 100 ea 3RF E11.65 - Type 2 diabetes mellitus with hyperglycemia, E11.9 - Type 2 diabetes mellitus without complications Discontinued simvastatin Discontinued Reason: Doctor's Order 40 mg PO DAILY 90 days 90 tabs 1RF E78.2 - Mixed hyperlipidemia semaglutide (Ozempic) Discontinued Reason: Doctor's Order 0.5 mg (0.736 mL) subcut QWEEK 4 weeks 2.944 mL 4RF E11.65 - Type 2 diabetes mellitus with hyperglycemia Patient Instructions: Goal: A1c to remain below 7.0, LDL to be below 100 Barriers: Adherence to physical activity and healthy eating habits
[2024-11-16 08:41] VITALS: BP 130/80; PULSE 83; O2SAT 94; BMI 36.9
== END 2024-11-16 09:05 | disposition home or self-care (01) ==
LOC: HO.HMCH 08:26
PROVIDERS: PCP Physician Assistant; Visit Provider Physician Assistant
DX: Z13.9 Encounter for screening, unspecified (principal)

== ENCOUNTER → 2024-11-16 08:25 | Outpatient (BNVA) | payer OTHER, SELFPAY | PROVIDERS: PCP Physician Assistant; Visit Provider Physician Assistant | DX: E11.65 Type 2 diabetes mellitus with hyperglycemia (principal); I10 Essential (primary) hypertension; E66.812 Obesity, class 2; Z68.36 Body mass index [BMI] 36.0-36.9, adult; J30.1 Allergic rhinitis due to pollen; E78.2 Mixed hyperlipidemia; Z79.84 Long term (current) use of oral hypoglycemic drugs; Z79.85 Long-term (current) use of injectable non-insulin antidiabetic drugs; Z79.899 Other long term (current) drug therapy | CPT/HCPCS: 83036; 96127; 99212 ==

== ENCOUNTER 2025-01-26 07:36 | Outpatient (REF) | payer OTHER, SELFPAY ==
[2025-01-26 08:15] LABS: Hematocrit 39.6 % (37.0-47.0); Hemoglobin 12.6 g/dl (12.0-16.0); Mean Corpuscular HGB Conc 31.8 g/dl (31.0-35.0); Mean Corpuscular Hemoglobin 25.8 pg (27.0-33.0); Mean Corpuscular Volume 81.1 fL (80.0-98.0); NRBC Abs Auto 0.000 X10*3/uL (0.0-0.012); NRBC Pct Auto 0.0 /100WBC (0.0-0.2); Platelet Count 186 X10*3/uL (160-400); Red Blood Count 4.88 X10*6/uL (4.20-5.50); White Blood Count 8.5 X10*3/uL (4.8-10.8)
[2025-01-26 08:55] LABS: Alanine Aminotransferase 23 U/L (0-31); Albumin Level 4.5 g/dL (3.5-5.0); Alkaline Phosphatase 89 U/L (39-117); Anion Gap 12 (12-20); Aspartate Amino Transferase 39 U/L (5-31); Blood Urea Nitrogen 18 mg/dL (9-16); Calcium 8.8 mg/dL (8.4-10.2); Carbon Dioxide 27 mmol/L (22-29); Chloride 108 mmol/L (96-108); Cholesterol 153 mg/dL (<200); Estimated Glomerular Filt Rate > 60; HDL Cholesterol 38 mg/dL (>40); Potassium 3.7 mmol/L (3.3-5.1); Sodium 143 mmol/L (135-145); Total Protein 7.2 g/dL (6.5-8.0); Triglycerides 236 mg/dL (<150)
== END 2025-01-26 07:37 | disposition home or self-care (01) ==
LOC: HO.LAB 07:36
PROVIDERS: Visit Provider Physician Assistant
DX: E11.65 Type 2 diabetes mellitus with hyperglycemia (principal); E78.2 Mixed hyperlipidemia
CPT/HCPCS: 36415; 80053; 80061; 85027

== ENCOUNTER 2025-02-05 07:38 | Outpatient (AMB) | payer OTHER, SELFPAY ==
--- NOTE | 2025-02-05 07:41 | A.OFFPC_ITS ---
Vital Signs 02/05/25 07:42 Height 5 ft 4 in Weight 218 lb BMI 37.4 BP 152/88 H Blood Pressure Location Lt brachial Position Sitting Pulse 85 Pulse Source Pulse Oximeter Pulse Oximetry (%) 98 Oxygen Delivery Method Room Air Intake Visit Reasons: [facility] 01/26 Head Of Digital Required: Yes Head Of Digital Language: Fijian Allergies lisinopril Allergy (Intermediate, Verified 02/05/25 08:21) Anaphylaxis pneumococcal vaccine (From Pneumovax-23) Adverse Reaction (Intermediate, Verified 02/05/25 08:21) Wheezing Tobacco use date assessed: 11/16/24 Dental Screening Dental Screen Date: 11/16/24 HPI HPI Comments History of Present Illness Details 54 y/o Female patient who presents to [facility] today for EDF. Patient was admitted at [facility] on 01/24 for an evaluation and treatment of Throat tightness and SOB. She was diagnosed with Globus Sensation. She never had any Facial or tongue swelling and syptoms have comletely resolved since ED discharge. Lisinopril was discontinued due to fear of Angioedema. CT Scan of Soft Tissue Neck with contrast was Negative. [facility] Medical History (Updated 02/05/25 @ 08:17 by Karly Stacy NP) Globus sensation Hyperlipidemia Iron deficiency anemia DMII (diabetes mellitus, type 2) HTN (hypertension) Acid reflux Surgical History H/O esophagogastroduodenoscopy H/O colonoscopy Hx of dilation and curettage Family History Brother Lymphoma Father Hypertension Diabetes Brother No problems noted. 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 - [employer] Cognitive needs: No Hearing needs: No Vision needs: No Questionnaire Thrive Questionnaire Date Thrive assessed: 11/16/24 I am a: Patient What is your living situation today?: I have a steady place to live Within the past 12 months, did the food you bought not last and you didn't have the money to get more?: Never true Within the past 12 months, did you worry whether your food would run out before you got money to buy more?: Never true Do you have trouble paying for medicines?: No Do you have trouble getting transportation to medical appointments?: No Do you have trouble paying your heating and electricity bill?: No Do you have trouble taking care of your child, family member or friend?: No Do you have trouble with day-to-day activities such as bathing, preparing meals, shopping, managing finances, etc.?: No Are you currently unemployed and looking for a job?: Yes Are you interested in more education?: No Please select the resources that you would like help with: None Currently or been in a relationship where the following occur: No concerns reported THRIVE Score: 0 SINDI-7 AMB Questionnaire SINDI-7 Date SINDI - 7 assessed: 11/16/24 Source: Developed by Drs. Jovany Encarnacion, Urmlia Toussaint, Nate Brown and colleagues, with an educational rachele from [employer]. Review of Systems Const All systems reviewed & are unremarkable except as noted in HPI and below Physical exam (Primary Care) Vital Signs: Last Vital Signs Pulse 85 02/05/25 07:42 BP 152/88 H 02/05/25 07:42 Pulse Ox 98 02/05/25 07:42 Oxygen Delivery Method Room Air 02/05/25 07:42 BMI result Body Mass Index 37.4 Tobacco/Smoking Status: Tobacco use Status Tobacco use date assessed 11/16/24 02/05/25 07:42 Patient Tobacco Use Status Never used Tobacco 02/05/25 07:42 Tobacco use type Cigarette 02/05/25 07:47 e-Cigarette/Vaping Use Never Used 02/05/25 07:42 Thrive Assessment: Date of Thrive Assessment Date Thrive assessed 11/16/24 02/05/25 07:42 Currently or been in a relationship where the following occur: No concerns reported Const General: no acute distress Nutritional Appearance: overweight Orientation/consciousness: patient oriented x3 Resp Effort & Inspection: normal respiratory effort Auscultation: clear to auscultation bilaterally Cardio Heart sounds: S1 normal heart sound present and S2 normal heart sound present Neuro General: patient oriented x3 Coding Level of Care Code Est Pt Level 4 (96427) Diagnoses Globus sensation R09.A2 Essential hypertension I10 Hypertension type: essential hypertension Time Spent (min) 20 Assessment & Plan Assessment & Plan (1) Globus sensation: Code(s): R09.A2 - Foreign body sensation, throat Category: Medical Plan: Resolved. Possibly due to Lisinopril, which was discontinued. (2) HTN (hypertension): Code(s): I10 - Essential (primary) hypertension Category: Medical Qualifiers: Hypertension type: essential hypertension Qualified Code(s): I10 - Essential (primary) hypertension Plan: D/C Lisinopril. Ordered HCTZ. Medications: New hydrochlorothiazide 25 mg PO DAILY 30 tabs 1RF I10 - Essential (primary) hypertension Refilled epinephrine (EpiPen 2-Levy) for 2 doses 0.3 mg (0.3 mL) IM Q10M PRN 2 ea 1RF anaphylaxis
[2025-02-05 07:42] VITALS: BP 152/88; PULSE 85; O2SAT 98; BMI 37.4
== END 2025-02-05 09:31 | disposition home or self-care (01) ==
LOC: HO.HMCH 07:39
PROVIDERS: PCP Physician Assistant; Visit Provider Nurse Practitioner Family
DX: R09.A2 Foreign body sensation, throat (principal); I10 Essential (primary) hypertension

== ENCOUNTER → 2025-02-05 07:38 | Outpatient (BNVA) | payer OTHER, SELFPAY | PROVIDERS: PCP Physician Assistant; Visit Provider Nurse Practitioner Family | DX: I10 Essential (primary) hypertension (principal); R09.A2 Foreign body sensation, throat | CPT/HCPCS: 99212 ==

== ENCOUNTER 2025-03-18 13:50 | Outpatient (AMB) | payer OTHER, SELFPAY ==
--- NOTE | 2025-03-18 14:00 | A.OFFPC_ITS ---
Vital Signs 03/18/25 14:01 Height 5 ft 4 in Weight 222 lb 2 oz BMI 38.1 BP 136/68 Blood Pressure Location Lt brachial Position Sitting Pulse 79 Pulse Source Pulse Oximeter Temp 97.1 F Temp Source Temporal Artery Scan Pulse Oximetry (%) 98 Oxygen Delivery Method Room Air Intake Visit Reasons: f/u DMII/ HLD- labs Intake Note: Patient is here to follow up on DM, HLD, and labs. 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 Making Plant Operator Required: Yes Pulp Making Plant Operator Language: Building Construction Supervisor Name: Charli ([id number]) Information Interpreted: non-clinical & clinical Industrial Maintenance Millwright: Not Required per policy Accompanied by: Self / Same As Patient Allergies lisinopril Allergy (Intermediate, Verified 03/18/25 14:16) Anaphylaxis pneumococcal vaccine (From Pneumovax-23) Adverse Reaction (Intermediate, Verified 03/18/25 14:16) Wheezing Medication List - Last Reconciled 03/18/25 by Alo Garcia PA-C amlodipine 5 mg PO DAILY 90 days atorvastatin 20 mg PO DAILY 90 days blood pressure monitor (Blood Pressure Kit) As directed blood sugar diagnostic (FreeStyle Lite Strips) As directed blood-glucose meter (FreeStyle [place]ath Lite kit) As directed epinephrine (EpiPen 2-Levy) 0.3 mg (0.3 mL) IM Q10M PRN hydrochlorothiazide 25 mg PO DAILY ibuprofen 800 mg PO Q8H 15 days lancets (FreeStyle Lancets) As directed loratadine (Allergy Relief (loratadine)) 10 mg PO DAILY 90 days metformin 1,000 mg PO BID 90 days nystatin 4 mL PO QID omeprazole 40 mg PO DAILY 90 days semaglutide (Ozempic) 1 mg (0.75 mL) subcut QWEEK 4 weeks Tobacco use date assessed: 03/18/25 Dental Screening Dental Screen Date: 11/16/24 HPI f/u DMII/ HLD- labs HPI Details Bianca is the 54-year-old female here today follow-up visit. ? Pmhx significant for DMII, HTN, obesity, anemia. GERD. ? .. ? DMII: Unfortunately A1c up at 7.5.. Unfortunately gained weight since last office visit, she feels it Ozempic has not been effective for her. Will try an alternative GLP 1 to help her with glycemic control and weight reduction. ? .. ? HTN:? Blood pressure today in office acceptable., patient denies any headaches, chest pains, vision issues or palpitations. ? .. ? HLD:? Most recent lipid panel showing better control over total cholesterol and LDL. She continues on atorvastatin 20 mg. Laboratory Tests 11/16/24 01/26/25 03/18/25 08:58 07:49 13:59 Fasting Glucose 154 H Hgb A1c (Clinic) 6.9 H 7.6 H Cholesterol 153 LDL Cholesterol, C alc 68 PFSH Medical History Globus sensation Hyperlipidemia Iron deficiency anemia DMII (diabetes mellitus, type 2) HTN (hypertension) Acid reflux Surgical History H/O esophagogastroduodenoscopy H/O colonoscopy Hx of dilation and curettage Family History Brother Lymphoma Father Hypertension Diabetes Brother No problems noted. 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 - [employer] Cognitive needs: No Hearing needs: No Vision needs: No Questionnaire Thrive Questionnaire Date Thrive assessed: 11/16/24 I am a: Patient What is your living situation today?: I have a steady place to live Within the past 12 months, did the food you bought not last and you didn't have the money to get more?: Never true Within the past 12 months, did you worry whether your food would run out before you got money to buy more?: Never true Do you have trouble paying for medicines?: No Do you have trouble getting transportation to medical appointments?: No Do you have trouble paying your heating and electricity bill?: No Do you have trouble taking care of your child, family member or friend?: No Do you have trouble with day-to-day activities such as bathing, preparing meals, shopping, managing finances, etc.?: No Are you currently unemployed and looking for a job?: Yes Are you interested in more education?: No Please select the resources that you would like help with: None Currently or been in a relationship where the following occur: No concerns reported THRIVE Score: 0 SINDI-7 AMB Questionnaire SINDI-7 Date SINDI - 7 assessed: 11/16/24 Source: Developed by Drs. Jovany Encarnacion, Urmila Toussaint, Nate Brown and colleagues, with an educational rachele from [employer]. Review of Systems Const Denies headache(s) Eyes Denies loss of vision ENT Denies vertigo, Denies dizziness, Denies headache(s) and Denies sore throat Card Denies chest pain, Denies leg edema and Denies lightheadedness Resp Denies cough, Denies hemoptysis and Denies wheezing GI Denies abdominal pain, Denies melena, Denies constipation, Denies diarrhea and Denies vomiting Denies urinary frequency, Denies dysuria and Denies urinary urgency Musc Denies arthralgias, Denies joint swelling, Denies numbness and Denies tingling Neuro Denies Abnormal speech present, Denies behavioral changes, Denies vertigo, Denies dizziness, Denies headache(s), Denies loss of vision, Denies memory loss, Denies numbness and Denies tingling Psych Denies anxiety, Denies behavioral changes, Denies depression, Denies memory loss and Denies panic attacks Abdifatah/Lymph Denies easy bleeding and Denies easy bruising Aller/Immun Denies wheezing Physical exam (Primary Care) Vital Signs: Last Vital Signs Temp 97.1 F 03/18/25 14:01 Pulse 79 03/18/25 14:01 BP 136/68 03/18/25 14:01 Pulse Ox 98 03/18/25 14:01 Oxygen Delivery Method Room Air 03/18/25 14:01 BMI result Body Mass Index 38.1 BMI Assessment/Plan discussion: High BMI High, discussed plan: lifestyle, weight reduction, dietary and physical activity Tobacco/Smoking Status: Tobacco use Status Tobacco use date assessed 03/18/25 03/18/25 14:11 Patient Tobacco Use Status Never used Tobacco 03/18/25 14:11 Tobacco use type Cigarette 03/18/25 14:11 e-Cigarette/Vaping Use Never Used 03/18/25 14:11 Thrive Assessment: Date of Thrive Assessment Date Thrive assessed 11/16/24 03/18/25 14:11 Currently or been in a relationship where the following occur: No concerns reported Const General: healthy appearing, no acute distress, alert and awake Nutritional Appearance: well nourished Orientation/consciousness: oriented to person, oriented to place and oriented to time HENMT Ears: TM's normal bilaterally General nose exam: Normal nasal mucous membranes and turbinates present Eyes Conjunctivae: conjunctivae normal Sclerae: sclerae normal Pupils: Equal, round and reactive pupils present Neck Neck: Yes no lymphadenopathy and Yes no JVD Thyroid: Thyroid normal Carotids: no bruits Resp Effort & Inspection: normal respiratory effort and not tachypneic Auscultation: no crackles, no rales, no rhonchi and no wheezes Cardio Rate: regular rate Rhythm: regular rhythm Heart sounds: no murmurs and normal S1 and S2 GI Palpation (GI): Soft to palpation, nontender, no hepatomegaly and no splenomegaly Auscultation: normal bowel sounds Skin General skin exam: no rashes or lesions noted and dry skin Neuro General: oriented to person, oriented to place and oriented to time Cranial nerves: Yes Equal, round and reactive pupils present Speech: No Abnormal speech present Gait exam (Neuro): Normal gait present Motor exam (neuro): no tremor noted Extrem Right upper extremity: full ROM Left upper extremity: full ROM Right lower extremity: full ROM; no edema Left lower extremity: full ROM; no edema Psych Mental Status: mental status grossly normal Speech and movement: Normal speech and movement present Affect: normal affect Attitude: cooperative Thought process: Normal thought process present Results AMB Hemoglobin A1c AMB Hemoglobin A1c 7.6 % Last Edit by ROSALIA Adair on 03/18/25 14:14 Results Reviewed Results Reviewed: Laboratory Last Values Hgb A1c (Clinic) 7.6 % (4.0-6.0) H 03/18/25 13:59 Coding Level of Care Code Est Pt Level 4 (57546) Diagnoses Essential hypertension I10 Hypertension type: essential hypertension Type 2 diabetes mellitus with hyperglycemia, without long-term current use of insulin E11.65 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 Will continue her current dose antihypertensive medication with goal blood pressure to remain below 140/90 (2) DMII (diabetes mellitus, type 2): Code(s): E11.9 - Type 2 diabetes mellitus without complications Category: Medical Qualifiers: Diabetes mellitus usp insulin use: without usp use Diabetes mellitus complication status: with hyperglycemia Qualified Code(s): E11.65 - Type 2 diabetes mellitus with hyperglycemia Plan: Patient's type 2 diabetes suboptimally controlled with A1c today is 7.5. She feels that Ozempic has not been helping her lose weight or gained glycemic control. Will switch her to an alternative GLP 1 monitor oral starting at 2.5 mg and up titrate to 5 mg weekly. Goal A1c is to be below 7.0 (3) Class 2 obesity: Code(s): E66.812 - Obesity, class 2 Category: Medical Plan: As per HPI patient now on GLP 1, have noted weight gain since last office visit, will try alternative GLP 1 (Mounjaro). She will continue to try to be more physically active and adapt to better eating habits to reduce her weight. (4) HLD (hyperlipidemia): Code(s): E78.5 - Hyperlipidemia, unspecified Category: Medical Qualifiers: Hyperlipidemia type: mixed hyperlipidemia Qualified Code(s): E78.2 - Mixed hyperlipidemia Plan: Most recent labs showing better control of total cholesterol and LDL. Will continue atorvastatin 20 mg with goal LDL to remain below 100 Orders: Orders AMB Hemoglobin A1c Today E11.65 - Type 2 diabetes mellitus with hyperglycemia Comprehensive Edwards. Panel Fast Today E11.65 - Type 2 diabetes mellitus with hyperglycemia Complete Blood Count no Diff Today E11.65 - Type 2 diabetes mellitus with hyperglycemia Lipid Panel Today E78.2 - Mixed hyperlipidemia Medications: New tirzepatide (Mounjaro) for 4 weeks 2.5 mg (0.5 mL) subcut QWEEK 2 mL 1RF 4 weeks E11.65 - Type 2 diabetes mellitus with hyperglycemia Refilled amlodipine 5 mg PO DAILY 90 tabs 1RF 90 days I10 - Essential (primary) hypertension lancets (FreeStyle Lancets) As directed 100 ea 3RF E11.65 - Type 2 diabetes mellitus with hyperglycemia, E11.9 - Type 2 diabetes mellitus without complications blood sugar diagnostic (FreeStyle Lite Strips) As directed 100 ea 1RF E11.65 - Type 2 diabetes mellitus with hyperglycemia, E11.9 - Type 2 diabetes mellitus without complications, K21.9 - Gastro-esophageal reflux disease without esophagitis Discontinued semaglutide (Ozempic) Discontinued Reason: Doctor's Order 1 mg (0.75 mL) subcut QWEEK 4 weeks 3 mL 3RF E11.65 - Type 2 diabetes mellitus with hyperglycemia
[2025-03-18 14:01] VITALS: BP 136/68; PULSE 79; TEMP 36.2; O2SAT 98; BMI 38.1
== END 2025-03-18 14:28 | disposition home or self-care (01) ==
LOC: HO.HMCH 13:51
PROVIDERS: PCP Physician Assistant; Visit Provider Physician Assistant
DX: I10 Essential (primary) hypertension (principal); E11.65 Type 2 diabetes mellitus with hyperglycemia; E66.812 Obesity, class 2; Z68.38 Body mass index [BMI] 38.0-38.9, adult; E78.2 Mixed hyperlipidemia

== ENCOUNTER → 2025-03-18 13:50 | Outpatient (BNVA) | payer OTHER, SELFPAY | PROVIDERS: PCP Physician Assistant; Visit Provider Physician Assistant | DX: I10 Essential (primary) hypertension (principal); K21.9 Gastro-esophageal reflux disease without esophagitis; E11.65 Type 2 diabetes mellitus with hyperglycemia; E78.2 Mixed hyperlipidemia; E66.812 Obesity, class 2; Z68.38 Body mass index [BMI] 38.0-38.9, adult | CPT/HCPCS: 83036; 99212 ==

== ENCOUNTER 2025-06-11 08:51 | Outpatient (REF) | payer OTHER, SELFPAY ==
[2025-06-11 10:06] LABS: Hematocrit 41.2 % (37.0-47.0); Hemoglobin 12.6 g/dl (12.0-16.0); Mean Corpuscular HGB Conc 30.6 g/dl (31.0-35.0); Mean Corpuscular Hemoglobin 24.9 pg (27.0-33.0); Mean Corpuscular Volume 81.3 fL (80.0-98.0); NRBC Abs Auto 0.000 X10*3/uL (0.0-0.012); NRBC Pct Auto 0.0 /100WBC (0.0-0.2); Platelet Count 184 X10*3/uL (160-400); Red Blood Count 5.07 X10*6/uL (4.20-5.50); White Blood Count 4.8 X10*3/uL (4.8-10.8)
[2025-06-11 10:20] LABS: Alanine Aminotransferase 23 U/L (0-31); Albumin Level 4.4 g/dL (3.5-5.0); Alkaline Phosphatase 93 U/L (39-117); Anion Gap 11 (12-20); Aspartate Amino Transferase 30 U/L (5-31); Blood Urea Nitrogen 12 mg/dL (9-16); Calcium 8.8 mg/dL (8.4-10.2); Carbon Dioxide 26 mmol/L (22-29); Chloride 109 mmol/L (96-108); Cholesterol 156 mg/dL (<200); Estimated Glomerular Filt Rate > 60; HDL Cholesterol 33 mg/dL (>40); Potassium 3.9 mmol/L (3.3-5.1); Sodium 142 mmol/L (135-145); Total Protein 7.5 g/dL (6.5-8.0); Triglycerides 119 mg/dL (<150)
== END 2025-06-11 08:52 | disposition home or self-care (01) ==
LOC: HO.LAB 08:51
PROVIDERS: PCP Physician Assistant; Visit Provider Physician Assistant
DX: E11.65 Type 2 diabetes mellitus with hyperglycemia (principal); E78.2 Mixed hyperlipidemia
CPT/HCPCS: 36415; 80053; 80061; 85027